=== PATIENT | male | born 1955 | race Two or more races ===

== ENCOUNTER → 2024-05-24 | Outpatient (CLI) | payer MEDICARE, MEDICAID, SELFPAY ==
--- NOTE | 2024-05-24 16:18 | XR_ITS ---
Examination: Venous duplex lower extremity sonogram, bilateral. Date and time of exam: May 24, 2024 1643 hrs. Indications: Bilateral leg swelling and pain 18 months, (nonhealing wound right lower leg noticed beginning one year ago Technique: Multiple sonographic images of the deep venous system have been obtained. B-mode/2-D grayscale imaging of vascular structures and Doppler spectral analysis (waveforms) and color performed Both legs are examined. Findings: Deep venous systems do not demonstrate abnormal echogenicity. No diagnostic visualization secondary to bandaging right peroneal and posterior tibial veins, left peroneal left posterior tibial veins Impression: Limited study No DVT demonstrated
== END | disposition home or self-care (01) ==
PROVIDERS: PCP Hospitalist; Referring Provider Hospitalist; Visit Provider Hospitalist
DX: I70.232 Atherosclerosis of native arteries of right leg with ulceration of calf (principal); I87.323 Chronic venous hypertension (idiopathic) with inflammation of bilateral lower extremity; I87.331 Chronic venous hypertension (idiopathic) with ulcer and inflammation of right lower extremity
CPT/HCPCS: 93970

== ENCOUNTER → 2024-05-24 | Outpatient (CLI) | payer MEDICARE, MEDICAID, SELFPAY | END | disposition home or self-care (01) | PROVIDERS: Visit Provider Student in an Organized Health Care Education/Training Program | DX: L97.812 Non-pressure chronic ulcer of other part of right lower leg with fat layer exposed (principal); M19.91 Primary osteoarthritis, unspecified site; B19.20 Unspecified viral hepatitis C without hepatic coma; I10 Essential (primary) hypertension; K74.60 Unspecified cirrhosis of liver; K21.9 Gastro-esophageal reflux disease without esophagitis; F15.90 Other stimulant use, unspecified, uncomplicated | CPT/HCPCS: 11042; 11045 ×4; 99213; A9270; G0463 ==

== ENCOUNTER → 2024-05-31 | Outpatient (CLI) | payer MEDICARE, MEDICAID, SELFPAY | END | disposition home or self-care (01) | LOC: SWHD 08:48 | PROVIDERS: PCP Family Medicine; Referring Provider Family Medicine; Visit Provider Student in an Organized Health Care Education/Training Program | DX: L97.812 Non-pressure chronic ulcer of other part of right lower leg with fat layer exposed (principal); F17.200 Nicotine dependence, unspecified, uncomplicated; M19.91 Primary osteoarthritis, unspecified site; B19.20 Unspecified viral hepatitis C without hepatic coma; I10 Essential (primary) hypertension; K74.60 Unspecified cirrhosis of liver; K21.9 Gastro-esophageal reflux disease without esophagitis; E66.9 Obesity, unspecified; F15.90 Other stimulant use, unspecified, uncomplicated | CPT/HCPCS: 97597; 97598 ×5; A9270 ==

== ENCOUNTER → 2024-06-02 | Outpatient (CLI) | payer MEDICARE, MEDICAID, SELFPAY ==
--- NOTE | 2024-06-02 15:00 | XR_ITS ---
Examination: Arterial duplex lower extremity study. Date and time of exam: June 02, 2024 1529 hours INDICATIONS: Bilateral leg swelling and pain nonhealing open wounds in the lower legs beginning one year ago Findings: Duplex sonographic imaging of the lower extremity arteries using B-mode/Suarez scale imaging and Doppler spectral analysis and color flow. Ankle brachial indices have been recorded. Right common femoral artery demonstrates triphasic flow. Right superficial femoral artery demonstrates biphasic flow. Right popliteal artery demonstrates biphasic flow. Left common femoral artery demonstrates monophasic flow. Left superficial femoral artery demonstrates biphasic flow. Left popliteal artery demonstrates biphasic flow. Bandaging precludes assessment perineal posterior tibial and dorsalis pedis arteries Impression: Limited study Significant obstructive arterial disease Consider correlation with CTA abdominal aorta iliofemoral runoff post intravenous contrast
== END | disposition home or self-care (01) ==
PROVIDERS: Referring Provider Hospitalist; Visit Provider Hospitalist
DX: I77.89 Other specified disorders of arteries and arterioles (principal)
CPT/HCPCS: 93925

== ENCOUNTER → 2024-06-07 | Outpatient (CLI) | payer MEDICARE, MEDICAID, SELFPAY | END | disposition home or self-care (01) | LOC: SWHD 09:55 | PROVIDERS: PCP Family Medicine; Referring Provider Family Medicine; Visit Provider Surgery | DX: L97.812 Non-pressure chronic ulcer of other part of right lower leg with fat layer exposed (principal); F17.200 Nicotine dependence, unspecified, uncomplicated; M19.91 Primary osteoarthritis, unspecified site; B19.20 Unspecified viral hepatitis C without hepatic coma; I10 Essential (primary) hypertension; K74.60 Unspecified cirrhosis of liver; K21.9 Gastro-esophageal reflux disease without esophagitis; E66.9 Obesity, unspecified; F15.90 Other stimulant use, unspecified, uncomplicated | CPT/HCPCS: 29581; A9270 ==

== ENCOUNTER → 2024-06-14 | Outpatient (CLI) | payer MEDICARE, MEDICAID, SELFPAY | END | disposition home or self-care (01) | LOC: SWHD 09:54 | PROVIDERS: PCP Family Medicine; Referring Provider Family Medicine; Visit Provider Student in an Organized Health Care Education/Training Program | DX: L97.812 Non-pressure chronic ulcer of other part of right lower leg with fat layer exposed (principal); F17.200 Nicotine dependence, unspecified, uncomplicated; M19.91 Primary osteoarthritis, unspecified site; B19.20 Unspecified viral hepatitis C without hepatic coma; I10 Essential (primary) hypertension; K74.60 Unspecified cirrhosis of liver; K21.9 Gastro-esophageal reflux disease without esophagitis; E66.9 Obesity, unspecified; F15.90 Other stimulant use, unspecified, uncomplicated | CPT/HCPCS: 17250; A9270 ==

== ENCOUNTER → 2024-06-21 | Outpatient (CLI) | payer MEDICARE, MEDICAID, SELFPAY | END | disposition home or self-care (01) | LOC: SWHD 09:56 | PROVIDERS: PCP Family Medicine; Referring Provider Family Medicine; Visit Provider Surgery | DX: L97.812 Non-pressure chronic ulcer of other part of right lower leg with fat layer exposed (principal); S91.104A Unspecified open wound of right lesser toe(s) without damage to nail, initial encounter; X58.XXXA Exposure to other specified factors, initial encounter; F17.200 Nicotine dependence, unspecified, uncomplicated; M19.91 Primary osteoarthritis, unspecified site; K74.60 Unspecified cirrhosis of liver; K21.9 Gastro-esophageal reflux disease without esophagitis; E66.9 Obesity, unspecified; F15.90 Other stimulant use, unspecified, uncomplicated; B19.20 Unspecified viral hepatitis C without hepatic coma | CPT/HCPCS: 29581; A9270 ==

== ENCOUNTER 2024-06-27 13:27 | Inpatient (IN) | payer MEDICARE, MEDICAID, SELFPAY ==
[2024-06-27] VITALS (8 sets, daily range): BP systolic 67–120; BP diastolic 47–69; PULSE 81–100; RESP 17–89; TEMP 36.5–37; O2SAT 84–98; BMI 43.5
--- NOTE | 2024-06-27 13:49 | EKG_ITS ---
[facility] Test Date: 2024-06-27 Pat Name: AYSHA GROVE Department: Room: - Gender: Male Clerical Transcriber: : [id number] Requested By: Cynthia Griffith Order Number: [id number] Reading MD: Cynthia Griffith Measurements Intervals [place] Rate: 82 P: 23 PA: 165 QRS: 16 QRSD: 85 T: 47 QT: 354 QTc: 414 Interpretive Statements SINUS RHYTHM LOW QRS VOLTAGE IN PRECORDIAL LEADS [QRS DEFLECTION < 1.0 mV IN CHEST LEADS] Compared to ECG 02/10/2023 20:30:43 Low QRS voltage now present /store/S0/[id number]/ecg/[id number].pdf
--- NOTE | 2024-06-27 14:05 | PC.NURSE ---
PT BROUGHT IN FROM [facility] WITH INITIAL C/O BILATERAL LEG PAIN, BUT UPON ARRIVAL OF EMS - EMS FOUND PT SHORT OF BREATH AND WITH RALES IN ALL LUNG [place] AND TREATED PT UNDER PULMONARY EDEMA EMS PROTOCOL WITH NITRO SUBLINGUAL AND NITROPASTE. UPON ARRIVAL AT THE HOSPITAL, B/P LOW AND NITROPASTE REMOVED FROM PT'S CHEST
[2024-06-27 14:30] LABS: Basophils # (Auto) 0.1 Thou/mm3 (0.0-0.2); Basophils % (Auto) 0 % (0-2.5); Eosinophils % (Auto) 0 % (0-10); Hematocrit 37.3 % (41.0-53.0); Hemoglobin 12.4 g/dL (13.5-16.0); Immature Granulocytes % (Auto) 1 % (0-0); Lymphocytes # (Auto) 1.3 Thou/mm3 (1.0-4.8); Lymphocytes % (Auto) 5 % (10-50); Mean Corpuscular HGB Conc 33.2 g/dl (31.0-37.0); Mean Corpuscular Hemoglobin 28.2 pg (25.0-35.0); Mean Corpuscular Volume 85 fL (80-100); Monocytes # (Auto) 0.6 Thou/mm3 (0.0-0.8); Monocytes % (Auto) 3 % (0-12); Neutrophils # (Auto) 21.2 Thou/mm3 (1.8-7.7); Neutrophils % (Auto) 91 % (37-80); Nucleated Red Blood Cell % 0 /100 WBC (0); Platelet Count 158 Thou/mm3 (140-440); RDW Standard Deviation 41.2 fL (35.1-43.9); Red Blood Count 4.39 Miln/mm3 (4.50-5.90); White Blood Count 23.4 Thou/mm3 (3.8-10.6)
[2024-06-27 14:47] LABS: Alanine Aminotransferase 36 U/L (10-49); Albumin, Serum 3.3 gm/dL (3.4-4.8); Albumin/Globulin Ratio 0.9 (1.2-2.2); Alkaline Phosphatase 95 U/L (46-116); Anion Gap 10 (7-16); Aspartate Amino Transferase 30 U/L (0-34); BUN/Creatinine Ratio 17 Ratio (12-20); Bilirubin,Total 0.6 mg/dL (0.3-1.2); Blood Urea Nitrogen 42 mg/dL (9-23); Calcium (Corrected) 9.6 mg/dL (8.5-10.1); Carbon Dioxide 22.4 mMol/L (20.0-31.0); Chloride 103 mMol/L (98-107); Creatinine (Component) 2.5 mg/dL (0.6-1.3); Estimated Creatinine Clearance 34.4 mL/min (>60); Globulin 3.7 gm/dL (2.3-3.5); Glucose 119 mg/dL (74-106); Osmolality,Calculated 281 (275-295); Potassium 3.7 mMol/L (3.4-5.1); Sodium 135 mMol/L (136-145); Troponin I < 0.020 ng/mL (0.0-0.045); eGFR 27 See Note
[2024-06-27 14:48] LABS: B-Type Natriuretic Peptide < 20 pg/mL (0-100)
--- NOTE | 2024-06-27 14:50 | XR_ITS ---
Examination: AP chest single view Technique one AP portable semiupright chest single view Exam date 9: June 27, 2024 1357 hours Comparison February 10, 2023 INDICATIONS: Sepsis today FINDINGS: Opacity in the left lung obscuring detail left cardiac contour Subsegmental atelectasis in the right lower lung zone Normal heart size IMPRESSION: Recommend lateral chest film follow-up to exclude pneumonia in the lingular segment left upper lobe
[2024-06-27] MEDS: SODIUM CHLORIDE 0.9% 500 ML 500 ML 999 ML IV (14:57)
[2024-06-27] MEDS: PIPER/TAZO 3.375 GM PREMIX 3.375 GM/50 ML BAG IV (15:03)
--- NOTE | 2024-06-27 15:04 | PD.EDSOB ---
ED SOB =RME/HPI General Chief Complaint: Shortness of Breath/Dyspnea Stated Complaint: SOB, AND LEG INFECTION Time Seen by Provider: 06/27/24 14:54 Arrival date/time: 06/27/24 13:27 RME / HPI RME / HPI Narrative: 68 year old male with history of chronic septic arthritis with I&D and placement of antibiotic cement 02/13/2023 at [facility], hypertension, cirrhosis, peripheral vascular disease, BPH, GERD presents to the ED, [facility] from [facility] with complaints of shortness of breath and right lower extremity redness, swelling, and pain. The patient states that while sitting on the toilet, he suddenly began to feel short of breath, accompanied by chills and a cough. According to medics, he was given two 0.4 mg sublingual nitroglycerin and a 1 nitroglycerin paste. Regarding his right leg, the patient reports having a small ulcer and fluid retention for the past 1.5 years, but about one week ago, he scraped his knee in the bathroom. Since then, he has noticed worsening redness, swelling, pain, and weeping from the wound. He denies fevers, chest pain, abdominal pain, nausea, vomiting, or urinary symptoms. Related Data Home Medications ?Medication ?Instructions ?Recorded ?Confirmed albuterol sulfate 90 mcg/actuation 1 puff inhalation QDAY PRN 09/30/21 10/20/23 aerosol inhaler Shortness Of Breath Or Wheezing celecoxib 200 mg capsule 1 cap PO BID 09/30/21 10/20/23 tamsulosin 0.4 mg capsule 1 cap PO QDAY 09/30/21 10/20/23 gabapentin 300 mg capsule 300 mg PO BID 11/13/21 10/20/23 Previous Rx's ?Medication ?Instructions ?Recorded losartan 50 mg tablet 50 mg PO QDAY Hypertension #30 tabs 11/13/21 omeprazole 20 mg capsule,delayed 20 mg PO QDAY #30 caps 11/13/21 release furosemide 40 mg tablet 40 mg PO QAM #30 tabs 12/11/21 Allergies Allergy/AdvReac Type Severity Reaction Status Date / Time No Known Allergies Allergy Verified 06/27/24 18:24 Review of Systems Review of Systems Narrative Review of Systems: Gen: No fever, no chills, no weight loss EYES: No discharge, no visual changes, no pain HEENT: No ear pain, no congestion, no sore throat PULM:+ shortness of breath, +cough, no congestion CV: No chest pain, no dyspnea on exertion, no palpitations GI: No nausea, no vomiting, no diarrhea, no pain, no constipation : No frequency, no urgency,? no dysuria Musc/skel: As noted in the HPI. No joint pain, no back pain Skin: No rash. Neuro: No weakness, no headache Past Medical History Past Medical History CARDIAC: Positive Cardiac Disorders, Congestive Heart Failure and Hypertension RESPIRATORY: Positive Smoking GASTROINTESTINAL: Positive Gastrointestinal Disorders, Hepatitis, Cirrhosis and Gastroesophageal Reflux Disease GENITOURINARY: Positive Benign Prostatic Hyperplasia MUSCULOSKELETAL: Positive Arthritis PSYCHO/SOCIAL: Positive Recreational Drug Use OTHER HISTORY: Positive MRSA Family History FAMILY HISTORY: Positive Family Cardiac Disorders Surgical History SURGICAL: Negative Cardiac Surgery, Open Heart Surgery, Coronary Artery Bypass Graft, Pacemaker or Vasectomy Social History SMOKING STATUS: Current some day smoker SECOND HAND EXPOSURE: Yes SUBSTANCE USE: former substance user and other ED Exam Narrative Physical exam: GENERAL: In general the patient is awake, interactive, in an emergency department gurney.? HEAD/EYES/EARS/NOSE/THROAT: normo-cephalic, atraumatic, mucus membranes are moist.? No cervical tenderness palpation midline.? Supple neck. CARDIOVASCULAR: regular rate and regular rhythm, no murmurs, heart sounds are not distant, strong pulses in all four extremities that are equal and symmetric bilateral upper and lower extremities, normal capillary refill. CHEST/PULMONARY: normal chest rise and fall, good air movement, clear to auscultation bilaterally, normal inspiratory to expiratory ratios without evidence of respiratory distress. ABDOMEN: soft, not tender, no masses appreciated BACK: normal range of motion without pain. NEUROLOGICAL: cranio-facial features are symmetric, moves all four extremities equally without obvious limitations or weakness. EXTREMITY: Bilateral lower extremity vascular changes, swelling to bilateral lower extremities (R>L), diabetic foot ulcer noted on the bottom of the right foot, cellulitis between first and second toes. Two wounds measuring 1cm x 8cm and 8cm x 3 cm with puss, tenderness to palpation, and weeping drainage on the posterior calf. Erythema that extends up ti thigh from the medial thigh to lateral thigh, not circumferential, there are 3 blisters to inner posterior thigh, no scrotal/ inguinal area/perineal involvement. Patient able to flex right knee without pain, nontender, there is a 2cm x 1cm open lesion on lateral aspect of patella. SKIN: warm, no jaundice, no petechia. PSYCH: calm, cooperative, no evidence of psychosis or agitation. Course Quality Measures Current suspected stage: sepsis Possible source: skin/soft tissue and wound Blood cultures ordered: completed in ED Antibiotic ordered: Yes Pertinent labs: 06/27/24 14:14 Lactic Acid 2.3 H mMol/L (0.4-2.0) Procalcitonin 2.47 H ng/ml (0.0-0.49) sepsis Orders Category Date Time Status Anodize Machine Operator STAT Care 06/27/24 14:49 Completed Continuous Pulse Oximetry STAT Care 06/27/24 14:49 Completed EKG (ED ONLY) *Do not use* NOW Care 06/27/24 13:50 Completed IV [Insert IV] STAT Care 06/27/24 13:49 Active In and Out Catheter X1PRN Care 06/27/24 14:49 Active Insert IV NOW Care 06/27/24 14:49 Completed Miscellaneous Nursing Order X1 Care 06/27/24 13:49 Active NPO STAT Care 06/27/24 14:49 Active Strict Intake and Output Routine Care 06/27/24 14:49 Ordered EKG (ED Only) Stat Exams 06/27/24 13:49 Draft US venous doppler LE BI Stat Exams 06/27/24 16:18 Completed XR chest 1V SEPSIS PROTOCOL Stat Exams 06/27/24 14:50 Completed BNP [B-Type Natriuretic Peptide] Stat Lab 06/27/24 14:14 Completed Blood Culture (Lab) Stat Lab 06/27/24 14:20 Received CBC Stat Lab 06/27/24 14:14 Completed CMP [Comprehensive Metabolic Panel] Stat Lab 06/27/24 14:14 Completed LDH (Lactate Dehydrogenase) Stat Lab 06/27/24 14:14 Completed Lactate (Lactic Acid) Stat Lab 06/27/24 14:14 Completed Lactic Acid, 3 HR Stat Lab 06/27/24 18:05 Ordered Lipase Stat Lab 06/27/24 14:14 Completed Magnesium Stat Lab 06/27/24 14:14 Completed Partial Thromboplastin Time Stat Lab 06/27/24 14:14 Completed Phosphorous Stat Lab 06/27/24 14:14 Completed Procalcitonin Stat Lab 06/27/24 14:14 Completed Prothrombin Time with INR Stat Lab 06/27/24 14:14 Completed Troponin I Stat Lab 06/27/24 14:14 Completed Urinalysis Stat Lab 06/27/24 14:49 Ordered Urine Culture Stat Lab 06/27/24 14:49 Ordered Wound Cult and GS, Anaer Stat Lab 06/27/24 15:25 Received Wound Cult and GS, Anaer Stat Lab 06/27/24 15:25 Received Cefepime Inj [Maxipime Inj] 1 gm Med 06/27/24 16:17 Discontinued SODIUM CHLORIDE 0.9% (Popper) [Ns 0.9% (P)] 50 ml IV X1 Piper/Tazo 3.375 gm Premix [Zosyn] Med 06/27/24 14:53 Discontinued 3.375 gm in 50 ml IV X1 Sodium Chloride 0.9% 1000 ml [Ns] 1,914 ml Med 06/27/24 16:15 Discontinued IV 1,914 mls/hr Sodium Chloride 0.9% 500 ml [Ns] 500 ml Med 06/27/24 14:51 Discontinued IV 999 mls/hr Vancomycin Inj 1,000 mg Med 06/27/24 14:52 Discontinued Sodium Chloride 0.9% 250 ml [Ns] 250 ml IV X1 Vancomycin/Ns 1 gm Ivpb 200 ml Med 06/27/24 15:00 Discontinued IV X1 Oxygen Delivery NOW RT 06/27/24 14:49 Active Vital Signs Vital signs: Vital Signs Temperature 97.9 F 06/27/24 13:48 Pulse Rate 90 06/27/24 13:48 Respiratory Rate 28 H 06/27/24 13:48 Pulse Oximetry (%) 89 L 06/27/24 13:48 Oxygen Delivery Method Nasal Cannula 06/27/24 13:48 Oxygen Flow Rate 6 06/27/24 13:48 Shortness of Breath / Dyspnea MDM Narrative MDM Narrative:: 68-year-old male with history of hypertension, osteoarthritis, right knee replacement, 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 Patient reports that he scraped his right leg knee area 3 days ago and increased redness over the last 1 to 2 days. Prior to arrival EMS reports that they thought he was having chest pain and chest pain protocol was followed. He was given nitroglycerin 0.4 sublingual and Nitropaste. ED course -Presented with a blood pressure of 67/47 pulse of 90 and respirations of 28. 89% on 6 L. Call Patient was awake and talking on arrival to the emergency department. -Nitropaste was removed and the blood pressure went up to 98/56 with a pulse of 81. A sepsis alert was called and the patient was completely undressed. It is noted that he has worsening right lower extremity cellulitis that goes from the right lower extremity to the right medial and lateral thigh, patient has worsening discharge from the right calf ulcer wound that has pus and as well as open wound over right lateral patella with yellow discharge. Patient has no crepitus on exam and there is no erythema into the scrotum or perineal. The patient's leg is marked for the obvious cellulitis on the lower extremity. -White count is noted to be 23,000, hemoglobin is 12/37, INR is 1.1. This is abnormal elevated white count. -BUN/creatinine is 42/2.5. Glucose is 119 and lactic acid was 2.3. Abnormal creatinine. -LFTs are normal. Procalcitonin is 2.47. Patient is treated with 30 mL/kg normal saline and surgical consult was completed here in the emergency department. Patient treated with Zosyn, vancomycin, he is not diabetic and cefepime is added. -Dr. Baez request CT of lower extremity with contrast. Plan: Repeat creatinine and if greater than 2.[address] a CT scan with IV contrast of the lower extremity. Dr. Lubin request that you call her back with the CT results. Patient data External records reviewed:: [facility] previous records, EMS form and Care Home records (I reviewed pmhx and medication list from [facility] ) Clinical information provided by:: patient and EMS Social determinants that could affect healthcare access:: housing (SNF resident) Patient has the following chronic illnesses:: chronic septic arthritis with I&D and placement of antibiotic cement 02/13/2023 at [facility], hypertension, cirrhosis, peripheral vascular disease, BPH, GERD How is presenting disease/condition affected by chronic disease/condition?: exacerbated by Evaluation data The following diagnostics were reviewed and interpreted by me:: lab results, radiology exam(s) and EKG tracing(s) (sinus rhythm, rate 82, low voltage, no elevation, no depression, QTc 392, no STEMI) Lab and/or radiology exams considered but not ordered:: None Interpretation Summary: Ordering Physician: Cynthia Jenkins MD Date of Service: 06/27/24 Procedure(s): XR chest 1V SEPSIS PROTOCOL Accession Number(s): [id number] cc: Demetris Zepeda MD; Cynthia Jenkins MD~ Examination: AP chest single view Technique one AP portable semiupright chest single view Exam date 9: June 27, 2024 1357 hours Comparison February 10, 2023 INDICATIONS: Sepsis today FINDINGS: Opacity in the left lung obscuring detail left cardiac contour Subsegmental atelectasis in the right lower lung zone Normal heart size IMPRESSION: Recommend lateral chest film follow-up to exclude pneumonia in the lingular segment left upper lobe Dictated By: Demetris Zepeda MD Signed By: <Electronically signed by Demetris Zepeda MD in OV> 06/27/24 1525 Medications / Prescriptions Medications or Prescriptions considered but not ordered:: None Medication administrations:: Medication Administration History Discontinued Medications Sodium Chloride (Ns) 500 mls @ 999 mls/hr IV .Q31M ONE Stop: 06/27/24 15:21 Last Infusion: 06/27/24 15:06 Dose: Infused Documented By: Admin: 06/27/24 14:57 Dose: 999 mls/hr Documented By: BD Vancomycin HCl 1,000 mg/ (Sodium Chloride) 250 mls @ 150 mls/hr IV X1 ONE Stop: 06/27/24 16:31 Last Admin: 06/27/24 15:06 Dose: Not Given Documented By: BD Non-Admin Reason: Other, see note Piperacillin/Tazobactam/Dextrose (Zosyn) 3.375 gm in 50 mls @ 100 mls/hr IV X1 ONE Stop: 06/27/24 15:22 Last Infusion: 06/27/24 15:34 Dose: Infused Documented By: Admin: 06/27/24 15:03 Dose: 100 mls/hr Documented By: BD Vancomycin/Sodium Chloride (Vancomycin/Ns 1 Gm Ivpb) 200 mls @ 120 mls/hr IV X1 ONE Stop: 06/27/24 16:39 Last Infusion: 06/27/24 17:27 Dose: Infused Documented By: Admin: 06/27/24 15:40 Dose: 120 mls/hr Documented By: BD Sodium Chloride (Ns) 1,914 mls @ 1,914 mls/hr 30 ml/kg infuse over 60 min (1914 ml) IV .Q1H ONE Stop: 06/27/24 17:14 Last Admin: 06/27/24 16:23 Dose: 1,914 mls/hr Documented By: BD Cefepime HCl 1 gm/ Sodium (Chloride) 50 mls @ 100 mls/hr IV X1 ONE Stop: 06/27/24 16:46 Last Admin: 06/27/24 17:43 Dose: 100 mls/hr Documented By: BD See above Consultations Consultation(s) initiated? (list below): Yes Consultation #1 (Physician, Specialty, Details): I spoke with surgeon Dr. Baez. Discussed patients PMHx, HPI, ED course, exam findings, labs results. Will come evaluate the patient in the ED. Time: 15:50 Consultation #2 (Physician, Specialty, Details): Patient has been evaluated by surgeon Dr. Baez. At this time does not think the patient has necrotizing fasciitis, requesting CT. Plan to repeat creatinine. Time: 17:18 Diagnosis Shortness of Breath Differential Diagnosis: acute exacerbation of chronic obstructive airways disease, congestive heart failure, community acquired pneumonia, asthma with exacerbation, pulmonary embolism and other (Sepsis, MRSA, Staph infection, necrotizing fasciitis) Most likely diagnosis given after review of the tests above:: To be determined Admission Indicated Admission indicated?: not indicated Admission Request Was there a request for admission?: Yes Admission Attestation Admission request attestation: Discussed case with [] from Hospitalist service regarding admission. Discussed patients ED course, exam findings, labs, and radiology results. The Hospitalist [agrees,declines] to accept the patient for admission. Disposition Plan Disposition Plan: other (specify) (Patient signed out to Dr. Estrella pending repeat creatinine and CT. ) Discharge Plan Prescriptions/Referrals Prescriptions/Med Rec: No Action furosemide 40 mg tablet 40 mg PO QAM Qty: 30 2RF Rx Instructions: Take one tab by mouth daily losartan 50 mg tablet 50 mg PO QDAY Qty: 30 2RF gabapentin 300 mg capsule 300 mg PO BID omeprazole 20 mg capsule,delayed release(DR/EC) 20 mg PO QDAY Qty: 30 2RF celecoxib 200 mg capsule 1 cap PO BID Patient Comments: TAKE ONE CAPSULE BY MOUTH TWICE DAILY FOR ARTHRITIS tamsulosin 0.4 mg capsule 1 cap PO QDAY albuterol sulfate 90 mcg/actuation HFA aerosol inhaler 1 puff INHALATION QDAY PRN (Reason: Shortness Of Breath Or Wheezing) Referrals: Michael Hayes MD [Primary Care Provider] - In 1 week Problem List Clinical Impression: Cellulitis of leg, right, Sepsis Patient/Caregiver Discharge Instructions Print Language: Greenlandic
[2024-06-27 15:19] LABS: Lactate (Lactic Acid) 2.3 mMol/L (0.4-2.0)
[2024-06-27 15:20] LABS: INR 1.1 (0.9-1.3); Partial Thromboplastin Time 33.4 Seconds (22.0-36.0); Prothrombin Time 12.2 Seconds (9.0-12.2)
--- NOTE | 2024-06-27 15:20 | PC.NURSE ---
pt does not want in and out cath will use urinal
[2024-06-27 15:31] LABS: LDH (Lactate Dehydrogenase) 162 U/L (120-246); Lipase 22 U/L (12-53); Magnesium 1.7 mg/dL (1.6-2.6); Phosphorous 4.2 mg/dL (2.4-5.1); Procalcitonin 2.47 ng/ml (0.0-0.49)
[2024-06-27] MEDS: VANCOMYCIN/NS 1 GM IVPB 200 ML IV (15:40)
--- NOTE | 2024-06-27 16:18 | XR_ITS ---
Examination: Venous duplex lower extremity sonogram, bilateral. Date and time of exam: June 27, 2024 1658 hrs. Indications: Leg swelling and redness beginning 3 days ago Technique: Multiple sonographic images of the deep venous system have been obtained. B-mode/2-D grayscale imaging of vascular structures and Doppler spectral analysis (waveforms) and color performed Both legs are examined. Findings: Deep venous systems do not demonstrate abnormal echogenicity. All visualized deep veins exhibit compressibility. All visualized deep veins exhibit augmentation. Impression: Negative for deep vein thrombosis
[2024-06-27] MEDS: SODIUM CHLORIDE 0.9% 1000 ML 1,914 ML 1914 ML IV (16:23)
--- NOTE | 2024-06-27 17:21 | PC.NURSE ---
pt very anxious has hx of anxiety. will call provider see if we can get something for anxiety
[2024-06-27] MEDS: CEFEPIME INJ 1 GM in SODIUM CHLORIDE 0.9% (Popper) 50 ML IV (17:43)
[2024-06-27 18:05] LABS: Reflex Lactate? Y
--- NOTE | 2024-06-27 18:17 | PC.NURSE ---
brother ellie called to talk to ask for update on pt advised pt was waiting to see if he is to be admitted. i informed pt that brother is on phone and pt stated that he wanted to talk provided phone to pt
--- NOTE | 2024-06-27 18:26 | PD.EDADDENDU ---
Emergency Room Addendum Addendum Narrative: [address] Jenkins. Past medical, surgical, social and family history reviewed. Vitals and home medications reviewed. Results and treatment plan discussed. I will assume the care of the patient at this time and will follow the patient, pending work-up results and final disposition. Please refer to the emergency department record for history and examination from initial visit. The following addendum documentation note is intended to reflect any pending information, findings, or radiology results not included in the patient?s initial chart. 2016 Morphine 4 mg IV every 30 minutes, up to a maximum of three doses, was ordered for pain management. Zofran was also prescribed. No prolonged QT interval was noted on his EKG. 2207 Case d/w hospitalist team who accepts patient for admission. RADIOLOGY DATA: Examination: Venous duplex lower extremity sonogram, bilateral. Date and time of exam: June 27, 2024 1658 hrs. Indications: Leg swelling and redness beginning 3 days ago Findings: Deep venous systems do not demonstrate abnormal echogenicity. All visualized deep veins exhibit compressibility. All visualized deep veins exhibit augmentation. Impression: Negative for deep vein thrombosis Dictated By: Demetris Zepeda MD, MD Attestation Attestation Scribe Attestation: I, Kerri Nieves, am scribing for and in the presence of Dr. Estrella. Provider Notation: Although this document has been carefully reviewed, there may still be some phonetic and other typographical errors. These errors are purely grammatical due to imperfections in the software program and should not be construed in any way to compromise the substance of the patient's medical care during this visit.
[2024-06-27 18:54] LABS: Lactic Acid, 3 HR 1.6 mMol/L (0.4-2.0)
[2024-06-27 19:21] LABS: Collection Type, Urine Clean Catch
[2024-06-27 19:24] LABS: Bacteria,Urine Rare; Bilirubin,Urine Negative (Negative); Blood,Urine Negative (Negative); Clarity,Urine Turbid (Clear/Hazy); Color,Urine Yellow (Lt Yel-Yel); Glucose, Urine Negative (Negative); Ketones,Urine Negative (Negative); Leukocyte Esterase,Urine Negative (Negative); Nitrite,Urine Negative (Negative); Protein,Urine 1+ (Neg - Trace); RBC,Urine 3 /hpf (0-3); Specific Gravity,Urine 1.024 (1.001-1.035); Squamous Epithelial Cell,Urine 1 /hpf (0-5); WBC,Urine 5 /hpf (0-5)
[2024-06-27] MEDS: ONDANSETRON INJ 2 MG/ML INJ 2 ML 4 MG IV (20:28)
[2024-06-27] MEDS: MORPHINE SULF INJ 10 MG/ML VIAL 4 MG IVP ×2 (20:28→22:34)
[2024-06-27 21:06] LABS: Lactate (Lactic Acid) 1.3 mMol/L (0.4-2.0)
[2024-06-27 21:29] LABS: Anion Gap 9 (7-16); BUN/Creatinine Ratio 19 Ratio (12-20); Blood Urea Nitrogen 42 mg/dL (9-23); Calcium 8.4 mg/dL (8.3-10.6); Carbon Dioxide 19.4 mMol/L (20.0-31.0); Chloride 108 mMol/L (98-107); Creatinine (Component) 2.2 mg/dL (0.6-1.3); Estimated Creatinine Clearance 39.1 mL/min (>60); Glucose 92 mg/dL (74-106); Osmolality,Calculated 282 (275-295); Potassium 3.9 mMol/L (3.4-5.1); Sodium 136 mMol/L (136-145); eGFR 32 See Note
--- NOTE | 2024-06-27 22:11 | XR_ITS ---
Examination: Tibia-Fibula, right , 2 views Technique: Tibia-fibula AP lateral 2 views Date and time of exam: June 27, 2024 2119 hrs. Indications: Lower leg redness swelling and pain this week Findings: Old deformities of the patella, ununited patellar fracture Prominent osteopenia Marked thickening of the anterior cortex of the tibia consistent with chronic osteomyelitis Impression: Chronic osteomyelitis appearance tibial shaft, recommend MRI lower leg without contrast follow-up
--- NOTE | 2024-06-27 23:26 | ESHP_ITS ---
<Statement entered by Mihir Avalos MD - 06/30/24 06:19> I reviewed above note and agree with findings and plans. I have also personally examined the patient with medicine team and went over assessment and plan with medical team including bakery pastry internship and resident physician. Documentation for date of: 06/27/24 HPI History of Present Illness History of present illness: Juwan is a 68 y/o male with PMHx severe peripheral vascular disease with chronic venous insufficiency, essential hypertension, hepatitis C, BPH, GERD, previous knee effusions requiring aspirations, HFpEF (with grade 1 diastolic dysfunction) who is brought in by ambulance from [facility] who comes in for an evaluation of right lower extremity pain and redness extending up to the mid thigh with associated fever and chills. Patient reports this is all developed over the past 3 days and that he has never had the symptoms before. He says that he has dealt with chronic issues in his right leg requiring numerous procedures, however has never had redness that has extended to his mid groin area. He notes that his groin and distal femur look different. Denies any recent travel, denies being a diabetic. He says that he felt weak in the bathroom today and could not get up and felt dizzy and felt as if he was going to pass out but did not. He says that the pain initially was a 10 out of 10 but it is manageable at this point. He says that he has seen vascular and orthopedic doctors in the past for managing his right leg. He has not had any symptoms on his left leg. He is wheelchair-bound. He sees wound care once a week. No other complaints at this time ED course: Patient arrived to the ED with a temperature of 98, heart rate of 90, tachypneic at 28, saturating 89% on 6 L room air. He was worked up and was found to have sodium of 135, potassium 3.7, BUN/creatinine of 42 and 2.5 respectively, white count 23, hemoglobin 12.4, lactate 2.3, troponin negative x 1, Pro-Yoel 2.47, urinalysis showed rare bacteria. Venous Doppler bilateral was done which showed no DVT and any other issues at the time. General surgery was spoken with who had recommended to image patient with CT lower extremities with contrast and give fluids prior to doing so, however patient's kidney function only slightly improved and CT of lower extremities was not done at the time. Patient was given approximately 3 L of normal saline, Zosyn x 1, cefepime x 1, Vanco x 1, 8 mg of morphine, Zofran x 1. Medicine was consulted and patient admitted to the floors. Past medical history: As above Surgical history: Knee aspiration, right, patellar repair in 1983 Allergies: No known allergies Meds: Tylenol, vitamin C, lactulose, cilostazol, Lasix, methadone, melatonin, losartan, Celebrex, Flomax, gabapentin, omeprazole, Dulcolax, milk of mag, Family history:Denies CVA, CAD and DM for family hx Social Hx: Born in [place] Lives/custodial in which she started living in 2 years ago. He has history of substance abuse including heroin, used to be a heavy drinker when he was younger. Has smoked for about 30 years but he was unsure if was a pack a day. Denies meth use. Review of Systems Review of Systems Narrative Review of Systems: Constitutional: positive fever, positive chills, no fatigue, weakness, weight loss HEENT: No eye pain, vision loss, ear pain, hearing loss, dysphagia, Cardiovascular: No chest pain, palpitations, edema, pain with walking Respiratory: No cough, shortness of breath, wheezing GI: No NVD, abdominal pain, constipation, blood in stool, loss of appetite, heartburn Extremities: No presence of pitting edema MSK: No back pain, joint pain, joint swelling, +R leg pain Neuro: No dizziness, numbness, weakness, headaches, seizures, tremors Psych: No anxiety, depression Exam Vital Signs Temp Pulse Resp BP Pulse Ox O2 Del Method O2 Flow Rate 98.2 F 100 20 117/69 97 Nasal Cannula 4 06/27/24 22:03 06/27/24 22:03 06/27/24 22:03 06/27/24 22:03 06/27/24 22:03 06/27/24 22:03 06/27/24 22:03 Narrative Exam General: AAOx3, NAD, morbidly obese, comfortable, pleasant male HEENT: Moist mucous membranes, conjunctiva clear, EOMI, pupils appear to be constricted, PERRLA, appears to have poor dentition Cardiovascular: Pansystolic murmur heard, radial pulses +2 bilat, RRR Pulmonary: Difficulty appreciating breath sounds with body habitus, no cough or wheezing GI: No tenderness to light or deep palpitation, no guarding, rigidity, rebound tenderness or distension Extremities: Chronic venous stasis on left leg, right lower extremity erythematous extending up to mid groin, presence of a couple of bullae near distal rectus femoris, warm to touch, chronic venous stasis seen in right lower extremity, multiple ulcers seen near Achilles region, and throughout foot Neuro: AAOx3, no focal motor or sensory deficits in the UE or LE bilat Psych: Good judgement, thought and behavior Results: Labs 06/27/24 14:14 06/27/24 20:50 Labs: Short CBC 06/27/24 Range/Units 14:14 WBC 23.4 H (3.8-10.6) Thou/mm3 Hgb 12.4 L (13.5-16.0) g/dL Hct 37.3 L (41.0-53.0) % Plt Count 158 (140-440) Thou/mm3 BMP 06/27/24 06/27/24 14:14 20:50 Sodium 135 L 136 Potassium 3.7 3.9 Chloride 103 108 H Carbon Dioxide 22.4 19.4 L BUN 42 H 42 H Creatinine 2.5 H 2.2 H Glucose 119 H 92 Calcium 9.0 8.4 Cardiac Enzymes 06/27/24 Range/Units 14:14 Troponin I < 0.020 (0.0-0.045) ng/mL Liver Function 06/27/24 Range/Units 14:14 Total Bilirubin 0.6 (0.3-1.2) mg/dL AST 30 (0-34) U/L ALT 36 (10-49) U/L Alkaline Phosphatase 95 (46-116) U/L Albumin 3.3 L (3.4-4.8) gm/dL Urine 06/27/24 Range/Units 19:14 Urine Color Yellow (Lt Yel-Yel) Urine Clarity Turbid A (Clear/Hazy) Urine pH 5.0 (5.0-7.0) Ur Specific [place] 1.024 (1.001-1.035) Urine Protein 1+ A (Neg - Trace) Urine Glucose (UA) Negative (Negative) Quality Measures Quality Measures sepsis Current suspected stage: sepsis Possible source: skin/soft tissue and wound Blood cultures ordered: completed in ED Antibiotic ordered: Yes Advance care planning discussed with:: patient Medications Home Medications and Allergies Home Medications ?Medication ?Instructions ?Recorded ?Confirmed ?Type albuterol sulfate 90 mcg/actuation 1 puff inhalation Q DAY PRN 09/30/21 10/20/23 History aerosol inhaler Shortness Of Breath Or Wheez ing celecoxib 200 mg capsule 1 cap PO BID 09/30/21 History tamsulosin 0.4 mg capsule 1 cap PO QDAY 09/30/2110/19 History gabapentin 300 mg capsule 300 mg PO BID 11/13/2110/19 History Allergies Allergy/AdvReac Type Severity Reaction Status Date / Time No Known Allergies Allergy Verified 06/27/24 18:24 Visit Medications Acetaminophen (Acetaminophen 325 Mg Tablet) 650 mg PO Q6H PRN PRN Reason: Fever >100 or fever 1-3 Stop: 07/27/24 23:09 Albuterol/Ipratropium (Albuterol/Ipratropium (Duoneb) Rt Alexus 3 Ml Nebu) 3 ml INH BID SILVIA Stop: 07/28/24 08:59 Gabapentin (Gabapentin 300 Mg Capsule) 300 mg PO BID SILVIA Stop: 07/28/24 08:59 Heparin Sodium (Porcine) (Heparin Sod Inj 5000 Unit/Ml Vial) 5,000 unit SC Q12H SILVIA Stop: 07/12/24 08:59 Sodium Chloride (Ns) 1,000 mls @ 150 mls/hr IV .Q6H40M SILVIA Stop: 07/27/24 23:14 Doxycycline Hyclate 100 mg/ (Sodium Chloride) 100 mls @ 100 mls/hr IV BID SILVIA Stop: 07/05/24 08:59 Piperacillin/Tazobactam/Dextrose (Zosyn) 2.25 gm in 50 mls @ 100 mls/hr IV Q6H SILVIA Stop: 07/05/24 05:59 Melatonin (Melatonin 3 Mg Tablet) 3 mg PO HS SILVIA Stop: 07/27/24 23:19 Morphine Sulfate (Morphine Sulf Inj 10 Mg/Ml Vial) 4 mg IVP Q30M PRN PRN Reason: PAIN Last Admin: 06/27/24 22:34 Dose: 4 mg Oxycodone/Acetaminophen (Oxycodone/Apap 5/325 Tablet) 1 tab PO Q6H PRN PRN Reason: PAIN SCALE 4-6 (Moderate Stop: 07/02/24 23:09 Pantoprazole Sodium (Pantoprazole Inj 40 Mg Vial) 40 mg IVP QDAY SILVIA Stop: 07/28/24 08:59 Discontinued Medications Sodium Chloride (Ns) 500 mls @ 999 mls/hr IV .Q31M ONE Stop: 06/27/24 15:21 Last Infusion: 06/27/24 15:06 Dose: Infused Vancomycin HCl 1,000 mg/ (Sodium Chloride) 250 mls @ 150 mls/hr IV X1 ONE Stop: 06/27/24 16:31 Last Admin: 06/27/24 15:06 Dose: Not Given Piperacillin/Tazobactam/Dextrose (Zosyn) 3.375 gm in 50 mls @ 100 mls/hr IV X1 ONE Stop: 06/27/24 15:22 Last Infusion: 06/27/24 15:34 Dose: Infused Vancomycin/Sodium Chloride (Vancomycin/Ns 1 Gm Ivpb) 200 mls @ 120 mls/hr IV X1 ONE Stop: 06/27/24 16:39 Last Infusion: 06/27/24 17:27 Dose: Infused Sodium Chloride (Ns) 1,914 mls @ 1,914 mls/hr 30 ml/kg infuse over 60 min (1914 ml) IV .Q1H ONE Stop: 06/27/24 17:14 Last Infusion: 06/27/24 20:43 Dose: Infused Cefepime HCl 1 gm/ Sodium (Chloride) 50 mls @ 100 mls/hr IV X1 ONE Stop: 06/27/24 16:46 Last Infusion: 06/27/24 19:26 Dose: Infused Piperacillin/Tazobactam/Dextrose (Zosyn) 2.25 gm in 50 mls @ 100 mls/hr IV Q6H [facility] Stop: 07/04/24 23:29 Ondansetron HCl (Ondansetron Inj 2 Mg/Ml Inj 2 Ml) 4 mg IV X1 ONE; Protocol Stop: 06/27/24 20:19 Last Admin: 06/27/24 20:28 Dose: 4 mg Assessment & Plan Plan Assessment Juwan is a 68 y/o male with PMHx severe peripheral vascular disease with chronic venous insufficiency, essential hypertension, hepatitis C, BPH, GERD, previous knee effusions requiring aspirations, HFpEF (with grade 1 diastolic dysfunction) who is for acute hypoxic respiratory failure and sepsis. #Acute hypoxic respiratory failure #Sepsis #RLE erythema DDx: Cellulitis, Jim's gangrene, acute limb ischemia, osteomyelitis Tachycardic, white count 23 Lactate 2.3 -> 1.6 -> 1.3 Patient was given nitro paste in ambulance, likely culprit of why patient was hypotensive qSOFA: 1 points 2 out of 4 SIRS criteria (tachypnea and WBC) Sepsis due to 2/4 SIRS criteria with acute sepsis-related organ dysfunction as evidence by DEV Given Sepsis Bolus: 2.9 L Spoke with general surgery, Dr. Baez, low suspicion for Jim's, will evaluate patient tomorrow Will start abx coverage with Zoysn and Doxycycline as there is low suspicion for Jim's and if it was a case of this, pt would need immediate surgical intervention Plan: ? Zosyn 2.5 mg Q6H IV renally dosed ? Doxycycline 100 mg twice daily IV ? Follow-up MRSA screen ? Follow-up urine cultures ? Follow-up blood cultures ? General Surgery consulted, appreciate recs ? Continue with oxygen, wean down as tolerated ? Tylenol for antipyretics ? Resumed home Percocet 5 mg every 6 hours as needed ? DuoNebs every 12 hours #Acute kidney injury #Lactic acidosis type B, resolved DDx: Prerenal versus ATN versus obstructive Has history of BPH and takes Flomax Creatinine of 2.5 -> 2.2 after fluids Creatinine clearance 39; GFR 32 Lactate 2.3 -> 1.6 -> 1.3 Plan: ? NS 150 cc/hr ? Urine creatinine and lytes ? Avoid nephrotoxic agents ? Renally dose medicines ? Santamaria #History of essential hypertension #Hx of HFpEF with grade 1 diastolic dysfunction Echo from 2022: The transthoracic study is normal by two-dimensional, color flow imaging and Doppler interrogation. Normal left ventricular size and function. Approximate ejection fraction is 60%. No wall motion abnormalities noted. Trace mitral and trace tricuspid regurgitation noted. Plan: ? Will hold on resuming blood pressure medicines at this time in setting of sepsis #History of BPH Will hold on resuming Flomax Plan: ? Santamaria #Chronic venous insufficiency #History of severe peripheral vascular disease Patient has gotten multiple procedures including aspiration for his condition Has been seen by orthopedic physicians Sees wound care once a week Plan: ? As above ? Wound care #History of substance abuse #History of hepatitis C Takes methadone 10 mL every Thursday Plan: ? Will hold on resuming methadone at this time ? Consider neonatal social worker referral ? Consider checking hep C titers #Health Maintenance Disposition: MedSurg DVT prophylaxis: Heparin q12h GI prophylaxis: Protonix Diet: Cardiac CODE STATUS: Full Patient seen and care discussed with my attending physician, Dr. aBiley Land, PGY-1
[2024-06-28] VITALS (9 sets, daily range): BP systolic 90–137; BP diastolic 52–77; PULSE 83–98; RESP 16–22; TEMP 36.2–37; O2SAT 92–99; BMI 45.1
[2024-06-28] MEDS: oxyCODONE/APAP 5/325 TABLET 1 TAB PO ×3 (00:59→21:10)
[2024-06-28] MEDS: SODIUM CHLORIDE 0.9% 1000 ML 1,000 ML 150 ML IV (01:05)
[2024-06-28] MEDS: DOXYCYCLINE INJ 100 MG in SODIUM CHLORIDE 0.9% (POP) 100 ML IV ×3 (01:07→21:10)
[2024-06-28] MEDS: MELATONIN 3 MG TABLET PO ×2 (01:17→21:10)
[2024-06-28 01:29] LABS: Creatinine,Random Urine 150 mg/dL (30-125); Potassium,Urine Random 54 mMol/L (12-62); Sodium,Urine Random < 15.0 mMol/L (20.0-110.0)
[2024-06-28 01:56] LABS: Chloride,Urine Random < 20.0 mMol/L (55.0-125.0)
[2024-06-28] MEDS: PIPER/TAZO 2.25 GM 2.25 GM/50 ML BAG IV ×4 (02:28→17:23)
--- NOTE | 2024-06-28 02:28 | PC.NURSE ---
Unable to scan barcode of Zosyn 2.25 mg IV. Medication administration verified and witnessed by eLxii Pena RN.
[2024-06-28 06:02] LABS: Basophils % (Auto) 0 % (0-2.5); Eosinophils % (Auto) 0 % (0-10); Hematocrit 36.4 % (41.0-53.0); Hemoglobin 12.2 g/dL (13.5-16.0); Immature Granulocytes % (Auto) 1 % (0-0); Immature Granulocytes Auto 0.18 Thou/mm3 (0.00-0.00); Lymphocytes # (Auto) 1.3 Thou/mm3 (1.0-4.8); Lymphocytes % (Auto) 6 % (10-50); Mean Corpuscular HGB Conc 33.5 g/dl (31.0-37.0); Mean Corpuscular Hemoglobin 28.8 pg (25.0-35.0); Mean Corpuscular Volume 86 fL (80-100); Monocytes # (Auto) 1.3 Thou/mm3 (0.0-0.8); Monocytes % (Auto) 6 % (0-12); Neutrophils # (Auto) 17.6 Thou/mm3 (1.8-7.7); Neutrophils % (Auto) 86 % (37-80); Nucleated Red Blood Cell % 0 /100 WBC (0); Platelet Count 154 Thou/mm3 (140-440); RDW Standard Deviation 41.1 fL (35.1-43.9); Red Blood Count 4.24 Miln/mm3 (4.50-5.90)
[2024-06-28 06:09] LABS: White Blood Count 20.4 Thou/mm3 (3.8-10.6)
[2024-06-28 06:23] LABS: Partial Thromboplastin Time 29.3 Seconds (22.0-36.0); Prothrombin Time 11.2 Seconds (9.0-12.2)
[2024-06-28 06:36] LABS: Alanine Aminotransferase 35 U/L (10-49); Albumin, Serum 3.1 gm/dL (3.4-4.8); Albumin/Globulin Ratio 0.9 (1.2-2.2); Alkaline Phosphatase 91 U/L (46-116); Anion Gap 9 (7-16); Aspartate Amino Transferase 37 U/L (0-34); BUN/Creatinine Ratio 22 Ratio (12-20); Bilirubin,Total 0.3 mg/dL (0.3-1.2); Blood Urea Nitrogen 39 mg/dL (9-23); Calcium 8.2 mg/dL (8.3-10.6); Calcium (Corrected) 8.9 mg/dL (8.5-10.1); Carbon Dioxide 21.2 mMol/L (20.0-31.0); Cardiac Risk Estimate 2.9 RATIO (4.0-6.7); Chloride 106 mMol/L (98-107); Cholesterol 87 mg/dL (132-200); Creatinine (Component) 1.8 mg/dL (0.6-1.3); Estimated Creatinine Clearance 48.8 mL/min (>60); Globulin 3.3 gm/dL (2.3-3.5); Glucose 96 mg/dL (74-106); HDL Cholesterol 30 mg/dL (40-60); LDL Cholesterol,Calculated 35 mg/dL (0-130); Magnesium 1.8 mg/dL (1.6-2.6); Osmolality,Calculated 281 (275-295); Phosphorous 4.3 mg/dL (2.4-5.1); Potassium 3.8 mMol/L (3.4-5.1); Sodium 136 mMol/L (136-145); Total Protein 6.4 gm/dL (5.7-8.2); Triglycerides 109 mg/dL (30-150); eGFR 40 See Note
[2024-06-28] MEDS: PANTOPRAZOLE INJ 40 MG VIAL IVP (08:19)
[2024-06-28] MEDS: GABAPENTIN 300 MG CAPSULE PO ×2 (08:19→21:10)
[2024-06-28] MEDS: HEPARIN SOD INJ 5000 UNIT/ML VIAL SC ×2 (08:19→21:10)
--- NOTE | 2024-06-28 09:49 | PD.SURCONS ---
HPI Consult details History of present illness: 68M with HTN, HCV, PAD with chronic venous insufficiency and chronic RLE wounds brought to ER from [facility] 06/27 due to redness of the right lower extremity. Pt noted the redness a few days before presentation, associated with pain and light yellow drainage.. Pt has been seen at wound care for the RLE May 2024 PMH: HTN, HCV, PAD PSHx: Remote R knee surgery Meds: Includes cilostazol, methadone Allergies: NKDA Social hx: Non-ambulatory, resides in [place] for past 2 years Review of Systems Review of Systems ROS Unobtainable: All systems reviewed & no additional complaints except as documented Meds Home Medications and Allergies Home Medications ?Medication ?Instructions ?Recorded ?Confirmed ?Type albuterol sulfate 90 mcg/actuation 1 puff inhalation QDAY PRN 09/30/21 10/20/23 History aerosol inhaler Shortness Of Breath Or Wheezing celecoxib 200 mg capsule 1 cap PO BID 09/30/21 10/20/23 History tamsulosin 0.4 mg capsule 1 cap PO QDAY 09/30/21 10/20/23 History gabapentin 300 mg capsule 300 mg PO BID 11/13/21 10/20/23 History Allergies Allergy/AdvReac Type Severity Reaction Status Date / Time No Known Allergies Allergy Verified 06/27/24 18:24 Exam Vital Signs Temp Pulse Resp BP Pulse Ox O2 Del Method O2 Flow Rate 98.4 F 84 18 120/70 94 L Room Air 4 06/28/24 08:00 06/28/24 08:00 06/28/24 08:00 06/28/24 08:00 06/28/24 08:00 06/28/24 08:00 06/28/24 04:00 Constitutional Constitutional: no acute distress Routine Respiratory Exam Respiratory: Present no resp distress Routine Extremities Exam Comments: erythema of the right leg most pronounced at the medial thigh extending posteriorly, which is mildly tender but not fluctuant, no signs of crepitus. Ulceration at the knee with fibrinous base Results Results: Laboratory Laboratory results: results reviewed Assessment & Plan Plan 68M with HTN, HCV, PAD with chronic venous insufficiency and chronic RLE wounds brought to ER from [facility] 06/27 due to RLE cellulitis. While the erythema is extensive there is no sign of abscess or necrotizing infection, not needing surgical intervention F/u CT RLE Continue abx Will follow up
[2024-06-28] MEDS: ALBUTEROL/IPRATROPIUM (Duoneb) RT SOL 3 ML NEBU INH ×2 (09:53→21:17)
[2024-06-28] MEDS: MORPHINE SULF INJ 10 MG/ML VIAL 2 MG IVP ×2 (11:08→16:13)
--- NOTE | 2024-06-28 11:50 | XR_ITS ---
Examination: CT right lower extremity, without contrast. 2-D sagittal reconstructions. 2-D coronal reconstructions. 3-D reconstructions. Date and time of exam:June 28, 2024 1632 hours Comparison February 02, 2023 INDICATIONS: Right leg redness swelling and pain beginning one week ago CTDI: vol (mGy):13.9 DLP: (mGycm):1362 Technique: Multiple 1.25 mm axial sections of the right lower extremity without intravenous contrast have been obtained. 2-D sagittal and coronal reconstructions have been obtained. 3-D reconstructions have been obtained. Low dose protocols were performed. One or more of the following dose reduction techniques were used; automated exposure control, adjustment of the mA and/or KV according to patient size, use of iterative reconstruction technique. Findings: Edema in the subcutaneous fatty tissue of the thigh Moderate to large knee effusion Significant edema and skin thickening in the right lower leg Cortical bone destruction again noted involving the lateral femoral condyle with possible antibiotic pellets Cortical bone destruction posterior surface of the patella Cortical bone destruction medial tibial plateau No soft tissue abscess IMPRESSION: Diffuse edema in the lower leg as above Osteomyelitis lateral femoral condyle, posterior patella, medial tibial plateau with septic arthritis appearance
--- NOTE | 2024-06-28 14:32 | PC.SS ---
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 He is expecting to return. Patient is alert/oriented. He is non ambulatory. Patient was admitted for sepsis and cellulitis of right leg. Referral for surgery placed. Dr. Baez. Patient plans on returning to facility. R/o osteo. Patient's alternate medical decision maker is his brother, Chad. Patient will need gurney transport upon discharge.
--- NOTE | 2024-06-28 15:42 | ESPR_ITS ---
<Statement entered by Lisa Giron MD - 06/29/24 06:05> I discussed with and supervised the technical support intern physician who took care of this patient. I personally saw and examined the patient and discussed the assessment and plan with the entire medicine team, including my attending Dr. Garland, I agree with most of the assessment and plan as documented below Lisa Giron M.D. PGY-2 Documentation for date of: 06/28/24 Subjective Subjective Interval history: No overnight events. Patient seen and examined at bedside. Patient endorses significant pain of right leg. Patient also endorsing anxiety, getting worse, requesting his home methadone. Patient denies fevers, chills, nausea, vomiting, shortness of breath, chest pain. Pending CT leg, follow-up. Continue IV antibiotics. Encourage oral hydration. Ordered methadone, pharmacy to confirm correct dosage with clinic. Exam Vital Signs Temp Pulse Resp BP Pulse Ox O2 Del Method O2 Flow Rate 98.4 F 84 16 120/70 99 Room Air 3 06/28/24 08:00 06/28/24 09:54 06/28/24 09:54 06/28/24 08:00 06/28/24 09:54 06/28/24 08:00 06/28/24 09:54 Narrative Exam PE: Gen: Well-developed and well-nourished. Obese. HEENT: NCAT, PERRLA, EOMI, MMM, anicteric conjunctivae. CVS: normal S1 and S2. RRR. No M/R/G. Resp: CTA B/L. No rhonchi, rales, crackles or wheezing. Poor lung sounds due to body habitus. Abd: soft, non-tender, non-distended. MSK: Good ROM in BUE & BLE. Bilateral lower extremity 2+ pitting edema. Bilateral stasis dermatitis. Right thigh blanching erythema, multiple blisters, oozing serous fluid. Large scab over right knee, old. Large wound to right calf, granulation tissue, chronic. Right lower extremity oozing serous fluid throughout. Neuro: CN II-XII grossly intact. Strength 5/5 in BUE & BLE. Alert and oriented x3. Psych: appropriate mood and affect. Objective Labs 06/28/24 04:37 06/28/24 04:37 Labs: Laboratory Results - last 24 hr 06/27/24 06/27/24 06/27/24 18:41 19:14 20:50 WBC RBC Hgb Hct MCV MCH MCHC RDW Std Deviation Plt Count Neut % (Auto) Lymph % (Auto) [place] % (Auto) Eos % (Auto) Baso % (Auto) Neut # (Auto) Lymph # (Auto) [place] # (Auto) Eos # (Auto) Baso # (Auto) Immature Gran # (Auto) Absolute Nucleated RBC Immature Gran % Nucleated RBC % PT INR APTT Sodium 136 Potassium 3.9 Chloride 108 H Carbon Dioxide 19.4 L Anion Gap 9 BUN 42 H Creatinine 2.2 H Estim Creat Clear Calc 39.1 L eGFR 32 L BUN/Creatinine Ratio 19 Glucose 92 Calculated Osmolality 282 Lactic Acid 1.6 1.3 Calcium 8.4 Corrected Calcium Phosphorus Magnesium Total Bilirubin AST ALT Alkaline Phosphatase Total Protein Albumin Globulin Albumin/Globulin Ratio Triglycerides Cholesterol LDL Cholesterol, Calc HDL Cholesterol Cholesterol/HDL Ratio TSH Ur Collection Type Clean Catch Urine Color Yellow Urine Clarity Turbid A Urine pH 5.0 Ur Specific [place] 1.024 Urine Protein 1+ A Urine Glucose (UA) Negative Urine Ketones Negative Urine Blood Negative Urine Nitrite Negative Urine Bilirubin Negative Urine Urobilinogen (Auto) 3.0 Ur Leukocyte Esterase Negative Urine RBC 3 Urine WBC 5 Ur Squamous Epith Cells 1 Urine Bacteria Rare Ur Random Creatinine Ur Random Sodium Ur Random Potassium Ur Random Chloride 06/28/24 06/28/24 00:31 04:37 WBC 20.4 H RBC 4.24 L Hgb 12.2 L Hct 36.4 L MCV 86 MCH 28.8 MCHC 33.5 RDW Std Deviation 41.1 Plt Count 154 Neut % (Auto) 86 H Lymph % (Auto) 6 L [place] % (Auto) 6 Eos % (Auto) 0 Baso % (Auto) 0 Neut # (Auto) 17.6 H Lymph # (Auto) 1.3 [place] # (Auto) 1.3 H Eos # (Auto) 0.0 Baso # (Auto) 0.0 Immature Gran # (Auto) 0.18 H Absolute Nucleated RBC 0.00 Immature Gran % 1 H Nucleated RBC % 0 PT 11.2 INR 1.0 APTT 29.3 Sodium 136 Potassium 3.8 Chloride 106 Carbon Dioxide 21.2 Anion Gap 9 BUN 39 H Creatinine 1.8 H Estim Creat Clear Calc 48.8 L eGFR 40 L BUN/Creatinine Ratio 22 H Glucose 96 Calculated Osmolality 281 Lactic Acid Calcium 8.2 L Corrected Calcium 8.9 Phosphorus 4.3 Magnesium 1.8 Total Bilirubin 0.3 AST 37 H ALT 35 Alkaline Phosphatase 91 Total Protein 6.4 Albumin 3.1 L Globulin 3.3 Albumin/Globulin Ratio 0.9 L Triglycerides 109 Cholesterol 87 L LDL Cholesterol, Calc 35 HDL Cholesterol 30 L Cholesterol/HDL Ratio 2.9 L TSH 1.60 Ur Collection Type Urine Color Urine Clarity Urine pH Ur Specific [place] Urine Protein Urine Glucose (UA) Urine Ketones Urine Blood Urine Nitrite Urine Bilirubin Urine Urobilinogen (Auto) Ur Leukocyte Esterase Urine RBC Urine WBC Ur Squamous Epith Cells Urine Bacteria Ur Random Creatinine 150 H Ur Random Sodium < 15.0 L Ur Random Potassium 54 Ur Random Chloride < 20.0 L Quality Measures Quality Measures sepsis Current suspected stage: sepsis Possible source: skin/soft tissue and wound Blood cultures ordered: completed in ED Antibiotic ordered: Yes Advance care planning discussed with:: patient Assessment & Plan Assessment Current Active Medications: Generic Name Dose Route Start Last Admin Trade Name Freq PRN Reason Stop Dose Admin Acetaminophen 650 mg 06/28/24 05:10 Acetaminophen 325 Mg Tablet PO 07/27/24 23:09 Q6H PRN Fever >100 or pain 1-3 Albuterol/Ipratropium 3 ml 06/28/24 09:00 06/28/24 09:53 Albuterol/Ipratropium (Duoneb) Rt Alexus 3 Ml Nebu INH 07/28/24 08:59 3 ml BID SILVIA Administration Gabapentin 300 mg 06/28/24 09:00 06/28/24 08:19 Gabapentin 300 Mg Capsule PO 07/28/24 08:59 300 mg BID SILVIA Administration Heparin Sodium (Porcine) 5,000 unit 06/28/24 09:00 06/28/24 08:19 Heparin Sod Inj 5000 Unit/Ml Vial SC 07/12/24 08:59 5,000 unit Q12H SILVIA Administration Doxycycline Hyclate 100 mg/ 100 mls @ 100 mls/hr 06/28/24 09:00 06/28/24 08:20 Sodium Chloride IV 07/05/24 08:59 100 mls/hr BID SILVIA Administration Piperacillin/Tazobactam/Dextrose 2.25 gm in 50 mls @ 12.5 mls/hr 06/28/24 06:00 06/28/24 12:44 Zosyn IV 07/05/24 05:59 12.5 mls/hr Q6H SILVIA Administration Melatonin 3 mg 06/27/24 23:20 06/28/24 01:17 Melatonin 3 Mg Tablet PO 07/27/24 23:19 3 mg HS SILVIA Administration Methadone HCl 100 mg 06/29/24 09:00 Methadone Hcl 10 Mg Tablet PO 07/04/24 08:59 QDAY SILVIA Protocol Morphine Sulfate 2 mg 06/28/24 01:27 06/28/24 11:08 Morphine Sulf Inj 10 Mg/Ml Vial IVP 07/03/24 01:26 2 mg Q4HR PRN Administration Pain 7-10 Oxycodone/Acetaminophen 1 tab 06/27/24 23:10 06/28/24 08:19 Oxycodone/Apap 5/325 Tablet PO 07/02/24 23:09 1 tab Q6H PRN Administration PAIN SCALE 4-6 (Moderate Pantoprazole Sodium 40 mg 06/28/24 09:00 06/28/24 08:19 Pantoprazole Inj 40 Mg Vial IVP 07/28/24 08:59 40 mg QDAY SILVIA Administration Plan 68 y/o male with PMHx severe peripheral vascular disease with chronic venous insufficiency, essential hypertension, hepatitis C, BPH, GERD, previous knee effusions requiring aspirations, HFpEF (with grade 1 diastolic dysfunction) who is for acute hypoxic respiratory failure and sepsis. #Acute hypoxic respiratory failure #Sepsis #RLE cellulitis Tachycardic, white count 23, actate 2.3 -> 1.6 -> 1.3. Patient was given nitro paste in ambulance, likely culprit of why patient was hypotensive. Sepsis due to 2/4 SIRS criteria with acute sepsis-related organ dysfunction as evidence by DEV Given Sepsis Bolus: 2.9 L Spoke with general surgery, Dr. Baez, low suspicion for Jim's Zoysn and Doxycycline as there is low suspicion for Jim's Await CT to evaluate for necrotizing fasciitis andor osteomyelitis -Zosyn 2.5 mg Q6H IV renally dosed -Doxycycline 100 mg twice daily IV -Follow-up MRSA screen -Follow-up urine cultures -Follow-up blood cultures -General Surgery consulted, appreciate recs -Continue with oxygen, wean down as tolerated -Tylenol for antipyretics -Resumed home Percocet 5 mg every 6 hours as needed -DuoNebs every 12 hours #Acute kidney injury, improving #Lactic acidosis type B, resolved DDx: Prerenal versus ATN versus obstructive Has history of BPH and takes Flomax Creatinine of 2.5 -> 2.2 after fluids Creatinine clearance 39; GFR 32 Lactate 2.3 -> 1.6 -> 1.3 -Encourage oral hydration -Urine creatinine and lytes -Avoid nephrotoxic agents -Renally dose medicines -Santamaria #History of essential hypertension #Hx of HFpEF with grade 1 diastolic dysfunction Echo from 2022: The transthoracic study is normal by two-dimensional, color flow imaging and Doppler interrogation. Normal left ventricular size and function. Approximate ejection fraction is 60%. No wall motion abnormalities noted. Trace mitral and trace tricuspid regurgitation noted. Patient currently denies shortness of breath or chest pain. -Will hold on resuming blood pressure medicines at this time in setting of sepsis #History of BPH Will hold on resuming Flomax -Santamaria #Chronic venous insufficiency #History of severe peripheral vascular disease Patient has gotten multiple procedures including aspiration for his condition Has been seen by orthopedic physicians Sees wound care once a week -As above -Wound care #History of substance abuse #History of hepatitis C Takes methadone 100 mg every Thursday -Order placed to resume home methadone, pharmacy to confirm dosage DVT prophylaxis: Heparin q12h GI prophylaxis: Protonix Diet: Cardiac Lines: PIV CODE STATUS: Full Plan of care discussed with senior resident Dr. Giron PGY?[address] Garland. Miguel Reynolds MD PGY?1 Attending Provider Attestation/Addendum I attest that I was physically present for the evaluation, physical examination, lab and imaging review of the patient with the residents. I discussed the case with the residents and agree with the findings and plans of care as documented above. At bedside, patient complains of right leg pain. He has bilateral lower extremity edema with status dermatitis. On the right leg he has erythema, elevated temperature, tenderness around his thigh area, knee extending towards his leg. Also noted to have multiple blisters over his thigh with oozing of serous fluid. There is a large wound on the right calf with granulation tissue which patient states is chronic and has been following with outpatient wound care. We will continue with IV Zosyn and doxycycline pending culture results. General surgery have been following, recommended medical management for now. X- ray of the leg has been obtained, shows findings concerning for osteomyelitis, discussed with general surgery agreed on getting CT of the lower limb to evaluate for osteomyelitis and necrotizing fasciitis. Patient states he is on methadone program, currently on IV opiates for pain control. We will confirm with pharmacy and resume his methadone. Kidney function have been improving, we will encourage oral hydration. Wound care following. Iza Garland MD
[2024-06-29] VITALS (9 sets, daily range): BP systolic 131–147; BP diastolic 68–98; PULSE 68–92; RESP 18–24; TEMP 36.3–37.2; O2SAT 92–99
[2024-06-29] MEDS: PIPER/TAZO 2.25 GM 2.25 GM/50 ML BAG IV ×5 (00:26→23:50)
[2024-06-29 06:16] LABS: Basophils # (Auto) 0.1 Thou/mm3 (0.0-0.2); Basophils % (Auto) 0 % (0-2.5); Eosinophils # (Auto) 0.1 Thou/mm3 (0.0-0.5); Eosinophils % (Auto) 0 % (0-10); Hematocrit 37.2 % (41.0-53.0); Hemoglobin 12.3 g/dL (13.5-16.0); Immature Granulocytes % (Auto) 2 % (0-0); Immature Granulocytes Auto 0.36 Thou/mm3 (0.00-0.00); Lymphocytes # (Auto) 1.3 Thou/mm3 (1.0-4.8); Lymphocytes % (Auto) 8 % (10-50); Mean Corpuscular HGB Conc 33.1 g/dl (31.0-37.0); Mean Corpuscular Hemoglobin 28.3 pg (25.0-35.0); Mean Corpuscular Volume 86 fL (80-100); Monocytes # (Auto) 1.4 Thou/mm3 (0.0-0.8); Monocytes % (Auto) 9 % (0-12); Neutrophils % (Auto) 81 % (37-80); Nucleated Red Blood Cell % 0 /100 WBC (0); Platelet Count 182 Thou/mm3 (140-440); RDW Standard Deviation 41.5 fL (35.1-43.9); Red Blood Count 4.34 Miln/mm3 (4.50-5.90); White Blood Count 16.1 Thou/mm3 (3.8-10.6)
[2024-06-29 07:14] LABS: Alanine Aminotransferase 40 U/L (10-49); Albumin, Serum 3.1 gm/dL (3.4-4.8); Albumin/Globulin Ratio 0.9 (1.2-2.2); Alkaline Phosphatase 91 U/L (46-116); Anion Gap 10 (7-16); Aspartate Amino Transferase 60 U/L (0-34); BUN/Creatinine Ratio 24 Ratio (12-20); Bilirubin,Total 0.3 mg/dL (0.3-1.2); Blood Urea Nitrogen 24 mg/dL (9-23); Calcium 8.6 mg/dL (8.3-10.6); Calcium (Corrected) 9.3 mg/dL (8.5-10.1); Carbon Dioxide 19.6 mMol/L (20.0-31.0); Chloride 108 mMol/L (98-107); Estimated Creatinine Clearance 87.8 mL/min (>60); Globulin 3.6 gm/dL (2.3-3.5); Glucose 86 mg/dL (74-106); Osmolality,Calculated 278 (275-295); Phosphorous 2.9 mg/dL (2.4-5.1); Potassium 4.5 mMol/L (3.4-5.1); Sodium 138 mMol/L (136-145); Total Protein 6.7 gm/dL (5.7-8.2); eGFR > 60 See Note
[2024-06-29] MEDS: METHADONE HCL 10 MG TABLET 100 MG PO (08:06)
[2024-06-29] MEDS: HEPARIN SOD INJ 5000 UNIT/ML VIAL SC ×2 (08:07→20:25)
[2024-06-29] MEDS: DOXYCYCLINE INJ 100 MG in SODIUM CHLORIDE 0.9% (POP) 100 ML IV ×2 (08:07→20:18)
[2024-06-29] MEDS: GABAPENTIN 300 MG CAPSULE PO ×2 (08:07→20:18)
[2024-06-29] MEDS: PANTOPRAZOLE INJ 40 MG VIAL IVP (08:07)
[2024-06-29] MEDS: ALBUTEROL/IPRATROPIUM (Duoneb) RT SOL 3 ML NEBU INH ×2 (10:08→20:46)
--- NOTE | 2024-06-29 10:13 | PD.SURPROG ---
Documentation for date of: 06/29/24 Subjective Subjective Brief History: 68M with HTN, HCV, PAD with chronic venous insufficiency and chronic RLE wounds brought to ER from [facility] 06/27 due to redness of the right lower extremity. Pt noted the redness a few days before presentation, associated with pain and light yellow drainage.. Pt has been seen at wound care for the RLE May 2024 PMH: HTN, HCV, PAD PSHx: Remote R knee surgery Meds: Includes cilostazol, methadone Allergies: NKDA Social hx: Non-ambulatory, resides in [place] for past 2 years Narrative: Pt reports stable RLE pain, WBC is downtrending, CT yesterday showed osteomyelitis and signs of possible septic arthritis Exam Vital Signs Temp Pulse Resp BP Pulse Ox O2 Del Method O2 Flow Rate 98.2 F 90 18 145/82 H 94 L Room Air 3 06/29/24 08:00 06/29/24 08:00 06/29/24 08:00 06/29/24 08:00 06/29/24 08:00 06/29/24 08:00 06/28/24 09:54 Constitutional Constitutional: no acute distress Routine Respiratory Exam Respiratory: Present no resp distress Routine Extremities Exam Comments: RLE erythema receded from previously made markings, no fluctuance Results Results: Laboratory Laboratory results: results reviewed Results: Imaging Imaging narrative: CT reviewed Assessment & Plan Plan 68M with HTN, HCV, PAD with chronic venous insufficiency and chronic RLE wounds brought to ER from [facility] 06/27 due to RLE cellulitis. While the erythema is extensive there is no sign of abscess or necrotizing infection Follow up ortho recs
--- NOTE | 2024-06-29 10:24 | PD.ORTHPN ---
Exam Vital Signs Temp Pulse Resp BP Pulse Ox O2 Del Method O2 Flow Rate 98.2 F 92 20 145/82 H 96 Room Air 3 06/29/24 08:00 06/29/24 10:11 06/29/24 10:11 06/29/24 08:00 06/29/24 10:11 06/29/24 08:00 06/28/24 09:54 Objective - Ortho Labs 06/29/24 05:32 06/29/24 05:32 Labs: Laboratory Results - last 24 hr 06/29/24 05:32 WBC 16.1 H RBC 4.34 L Hgb 12.3 L Hct 37.2 L MCV 86 MCH 28.3 MCHC 33.1 RDW Std Deviation 41.5 Plt Count 182 Neut % (Auto) 81 H Lymph % (Auto) 8 L [place] % (Auto) 9 Eos % (Auto) 0 Baso % (Auto) 0 Neut # (Auto) 13.0 H Lymph # (Auto) 1.3 [place] # (Auto) 1.4 H Eos # (Auto) 0.1 Baso # (Auto) 0.1 Immature Gran # (Auto) 0.36 H Absolute Nucleated RBC 0.00 Immature Gran % 2 H Nucleated RBC % 0 Sodium 138 Potassium 4.5 D Chloride 108 H Carbon Dioxide 19.6 L Anion Gap 10 BUN 24 H Creatinine 1.0 D Estim Creat Clear Calc 87.8 eGFR > 60 BUN/Creatinine Ratio 24 H Glucose 86 Calculated Osmolality 278 Calcium 8.6 Corrected Calcium 9.3 Phosphorus 2.9 Magnesium 2.0 Total Bilirubin 0.3 AST 60 H ALT 40 Alkaline Phosphatase 91 Total Protein 6.7 Albumin 3.1 L Globulin 3.6 H Albumin/Globulin Ratio 0.9 L Assessment & Plan Diagnosis (1) Osteomyelitis: Status: Acute Assessment Additional comments: Please order esr, crp, and xrays of femur and knee for an orthopaedic consult.
[2024-06-29 10:32] LABS: Sed Rate (ESR) 78 mm/hr (0-20)
[2024-06-29 10:51] LABS: C-Reactive Protein 22.2 mg/dL (0.0-0.9)
--- NOTE | 2024-06-29 13:40 | ESPR_ITS ---
<Statement entered by Valerie Smith MD - 06/29/24 19:25> I discussed with and supervised the internal auditor physician who took care of this patient. I personally saw and examined the patient and discussed the assessment and plan with the entire medicine team, including my attending Dr. Lake, I agree with the assessment and plan as documented below Patient seen and examined at bedside today. Labs and imaging reviewed. No overnight acute events This morning the bedside patient stated that continued to have significant pain on the right leg as well as on the knee. CT showed osteomyelitis and septic arthritis for which orthopedic surgery was consulted for further recommendations, will continue IV antibiotics and infectious disease was consulted. Valerie Smith MD PGY-3 Disclaimer: Despite multiple revisions, due to the dictation software being used, the document bellow may not be free of grammatical errors including phonetic/typographic errors. However, this does not deter from our commitment to providing health care in the patient's best interest in mind. <Statement entered by Lisa Giron MD - 06/29/24 18:42> Patient seen and examined at bedside. No acute overnight events reported. Patient continues to have right leg pain. Will add Toradol for pain control. CT showed osteomyelitis and septic arthritis. Dr. Luevano, jonnathan was consulted and recommended to continue with IV antibiotics, and if patient's symptoms worsen will consider possible amputation. Pending cultures, and will consult ID for further recommendations. I discussed with and supervised the internal auditor physician who took care of this patient. I personally saw and examined the patient and discussed the assessment and plan with the entire medicine team, including my attending , I agree with most of the assessment and plan as documented below Lisa Giron M.D. PGY-2 Disclaimer: Despite multiple revisions, due to the dictation software being used, the document bellow may not be free of grammatical errors including phonetic/typographic errors. However, this does not deter from our commitment to providing health care in the patient's best interest in mind. Documentation for date of: 06/29/24 Subjective Subjective Interval history: No overnight events. Patient seen and examined at bedside. Patient continues to endorse pain of right leg, denies fever, chills, shortness of breath, nausea, vomiting. Added ketorolac for better pain control CT showed signs of osteomyelitis, possible symptomatic. Peds consulted, patient has history of chronic septic arthritis, no acute intervention. ID consulted for osteomyelitis. Exam Vital Signs Temp Pulse Resp BP Pulse Ox O2 Del Method O2 Flow Rate 97.8 F 68 19 131/98 H 94 L Room Air 3 06/29/24 12:00 06/29/24 12:00 06/29/24 12:00 06/29/24 12:00 06/29/24 12:00 06/29/24 12:00 06/28/24 09:54 Narrative Exam PE: Gen: Well-developed and well-nourished. Obese. HEENT: NCAT, PERRLA, EOMI, MMM, anicteric conjunctivae. CVS: normal S1 and S2. RRR. No M/R/G. Resp: CTA B/L. No rhonchi, rales, crackles or wheezing. Poor lung sounds due to body habitus. Abd: soft, non-tender, non-distended. MSK: Good ROM in BUE & BLE. Bilateral lower extremity 2+ pitting edema. Bilateral stasis dermatitis. Right thigh blanching erythema, multiple blisters deroofed, oozing serous fluid. Large scab over right knee, old, bandaged. Large wound to right calf, granulation tissue, chronic, bandaged. Right lower extremity oozing serous fluid throughout, bandaged. Neuro: CN II-XII grossly intact. Strength 5/5 in BUE & BLE. Alert and oriented x3. Psych: appropriate mood and affect. Objective Labs 06/29/24 05:32 06/29/24 05:32 Labs: Laboratory Results - last 24 hr 06/29/24 05:32 WBC 16.1 H RBC 4.34 L Hgb 12.3 L Hct 37.2 L MCV 86 MCH 28.3 MCHC 33.1 RDW Std Deviation 41.5 Plt Count 182 Neut % (Auto) 81 H Lymph % (Auto) 8 L [place] % (Auto) 9 Eos % (Auto) 0 Baso % (Auto) 0 Neut # (Auto) 13.0 H Lymph # (Auto) 1.3 [place] # (Auto) 1.4 H Eos # (Auto) 0.1 Baso # (Auto) 0.1 Immature Gran # (Auto) 0.36 H Absolute Nucleated RBC 0.00 Immature Gran % 2 H Nucleated RBC % 0 ESR 78 H Sodium 138 Potassium 4.5 D Chloride 108 H Carbon Dioxide 19.6 L Anion Gap 10 BUN 24 H Creatinine 1.0 D Estim Creat Clear Calc 87.8 eGFR > 60 BUN/Creatinine Ratio 24 H Glucose 86 Calculated Osmolality 278 Calcium 8.6 Corrected Calcium 9.3 Phosphorus 2.9 Magnesium 2.0 Total Bilirubin 0.3 AST 60 H ALT 40 Alkaline Phosphatase 91 C-Reactive Prot, Quant 22.2 H Total Protein 6.7 Albumin 3.1 L Globulin 3.6 H Albumin/Globulin Ratio 0.9 L Quality Measures Quality Measures sepsis Current suspected stage: sepsis Possible source: skin/soft tissue and wound Blood cultures ordered: completed in ED Antibiotic ordered: Yes Advance care planning discussed with:: patient Assessment & Plan Assessment Current Active Medications: Generic Name Dose Route Start Last Admin Trade Name Freq PRN Reason Stop Dose Admin Acetaminophen 650 mg 06/28/24 05:10 Acetaminophen 325 Mg Tablet PO 07/27/24 23:09 Q6H PRN Fever >100 or pain 1-3 Albuterol/Ipratropium 3 ml 06/28/24 09:00 06/29/24 10:08 Albuterol/Ipratropium (Duoneb) Rt Alexus 3 Ml Nebu INH 07/28/24 08:59 3 ml BID SIVLIA Administration Gabapentin 300 mg 06/28/24 09:00 06/29/24 08:07 Gabapentin 300 Mg Capsule PO 07/28/24 08:59 300 mg BID SILVIA Administration Heparin Sodium (Porcine) 5,000 unit 06/28/24 09:00 06/29/24 08:07 Heparin Sod Inj 5000 Unit/Ml Vial SC 07/12/24 08:59 5,000 unit Q12H SILVIA Administration Doxycycline Hyclate 100 mg/ 100 mls @ 100 mls/hr 06/28/24 09:00 06/29/24 08:07 Sodium Chloride IV 07/05/24 08:59 100 mls/hr BID SILVIA Administration Piperacillin/Tazobactam/Dextrose 2.25 gm in 50 mls @ 12.5 mls/hr 06/28/24 06:00 06/29/24 05:06 Zosyn IV 07/05/24 05:59 12.5 mls/hr Q6H SILVIA Administration Melatonin 3 mg 06/27/24 23:20 06/28/24 21:10 Melatonin 3 Mg Tablet PO 07/27/24 23:19 3 mg HS SILVIA Administration Methadone HCl 100 mg 06/29/24 09:00 06/29/24 08:06 Methadone Hcl 10 Mg Tablet PO 07/04/24 08:59 100 mg QDAY SILVIA Administration Protocol Morphine Sulfate 2 mg 06/28/24 01:27 06/28/24 16:13 Morphine Sulf Inj 10 Mg/Ml Vial IVP 07/03/24 01:26 2 mg Q4HR PRN Administration Pain 7-10 Oxycodone/Acetaminophen 1 tab 06/27/24 23:10 06/28/24 21:10 Oxycodone/Apap 5/325 Tablet PO 07/02/24 23:09 1 tab Q6H PRN Administration PAIN SCALE 4-6 (Moderate Pantoprazole Sodium 40 mg 06/28/24 09:00 06/29/24 08:07 Pantoprazole Inj 40 Mg Vial IVP 07/28/24 08:59 40 mg QDAY SILVIA Administration Plan 68 y/o male with PMHx severe peripheral vascular disease with chronic venous insufficiency, essential hypertension, hepatitis C, BPH, GERD, previous knee effusions requiring aspirations, HFpEF (with grade 1 diastolic dysfunction) who is for acute hypoxic respiratory failure and sepsis. #Acute hypoxic respiratory failure, resolved #Sepsis, resolved #RLE cellulitis and osteomyelitis Tachycardic, white count 23, actate 2.3 -> 1.6 -> 1.3. Patient was given nitro paste in ambulance, likely culprit of why patient was hypotensive. Sepsis due to 2/4 SIRS criteria with acute sepsis-related organ dysfunction as evidence by DEV Given Sepsis Bolus: 2.9 L Spoke with general surgery, Dr. Baez, low suspicion for Jim's Zoysn and Doxycycline as there is low suspicion for Jim's CT showed osteomyelitis of patella, femur, tibia, and septic arthritis. 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 Orthopedics consulted, no acute intervention. MRSA screen positive, urine culture negative -Zosyn 2.5 mg Q6H IV renally dosed -Doxycycline 100 mg twice daily IV -Mupirocin 3 times daily -Follow-up blood cultures -General Surgery consulted, appreciate recs -Consulted Ortho, appreciate recommendations -Consulted ID, appreciate recommendations -Tylenol for antipyretics -DuoNebs every 12 hours -Ketorolac 30 mg IV every 6 hours as needed for pain #Acute kidney injury, improving #Lactic acidosis type B, resolved DDx: Prerenal versus ATN versus obstructive Has history of BPH and takes Flomax Creatinine of 2.5 -> 2.2 after fluids Creatinine clearance 39; GFR 32 Lactate 2.3 -> 1.6 -> 1.3 -Encourage oral hydration -Follow daily labs -Avoid nephrotoxic agents -Renally dose medicines -Santamaria #History of essential hypertension #Hx of HFpEF with grade 1 diastolic dysfunction Echo from 2022: The transthoracic study is normal by two-dimensional, color flow imaging and Doppler interrogation. Normal left ventricular size and function. Approximate ejection fraction is 60%. No wall motion abnormalities noted. Trace mitral and trace tricuspid regurgitation noted. Patient currently denies shortness of breath or chest pain. -Resume home meds: Losartan 50 mg p.o. daily #History of BPH Will hold on resuming Flomax -Santamaria #Chronic venous insufficiency #History of severe peripheral vascular disease Patient has gotten multiple procedures including aspiration for his condition Has been seen by orthopedic physicians Sees wound care once a week -As above -Wound care #History of substance abuse #History of hepatitis C Takes methadone 100 mg daily, dose is confirmed by pharmacy -Resume home meds: Methadone 100 mg p.o. daily -Will avoid other opioid medication DVT prophylaxis: Heparin q12h GI prophylaxis: Protonix Diet: Cardiac Lines: PIV CODE STATUS: Full Plan of care discussed with senior residents Dr. Smith PGY?[address] Giron PGY?2, and attending Dr. Lake. Miguel Reynolds MD PGY?1 Attending Provider Attestation/Addendum I have examined the patient, reviewed labs and imaging findings, discussed the case with the resident(s), and reviewed entered orders. I agree with the plan of care as outlined in this note, with these additional summaries/recommendations: Patient seen at bedside. No acute overnight events. He reports minor improvement in right lower leg pain. Right lower extremity cellulitis appears slightly improved. Will continue IV antibiotics and wound care. Blood cultures show no growth at [address] scan of right lower extremity shows diffuse edema and osteomyelitis of the lateral femoral condyle, posterior patella, medial tibial plateau with septic arthritis appearance. Orthopedics was consulted and agrees with current management. If symptoms worsen patient may require amputation. ESR 78 and CRP 22.2. We will consult infectious disease for osteomyelitis. Patient in agreement with PICC line if needed. Patient was also noted to have acute kidney injury on admission which is now resolved. Creatinine now 1.0 and BUN 24. Continue to avoid nephrotoxic agents and renally dose medications. Patient updated on the plan and in agreement. Repeat hematology and chemistry panel in AM. Dr. Aleksandra MD
--- NOTE | 2024-06-29 14:27 | PD.ORTHCON ---
HPI Consult details Reason for consultation narrative: right knee infection and cellulitis History of present illness: Patient is a 68yo male with a chronically infected right knee and complete disruption of the extensor mechanism on the left. He has a history of chronic venous statis ulcers and has had multiple surgeries on both knees for infection and chronic osteomyelitis. I saw him in my office 6 months ago and we discussed that he is not a candidate for a TKA given the chronic osteomyelitis. He reports that he had recent redness of the entire leg. He reports the actual knee does not hurt significantly. He reports that the redness has improved since he has been on antibitoics. Past Medical History Past Medical History Comments PMH COMMENT: chronic osteomyelitis, cellulitis, Meds Home Medications and Allergies Home Medications ?Medication ?Instructions ?Recorded ?Confirmed ?Type albuterol sulfate 90 mcg/actuation 1 puff inhalation QDAY PRN 09/30/21 10/20/23 History aerosol inhaler Shortness Of Breath Or Wheezing celecoxib 200 mg capsule 1 cap PO BID 09/30/21 10/20/23 History tamsulosin 0.4 mg capsule 1 cap PO QDAY 09/30/21 10/20/23 History gabapentin 300 mg capsule 300 mg PO BID 11/13/21 10/20/23 History Allergies Allergy/AdvReac Type Severity Reaction Status Date / Time No Known Allergies Allergy Verified 06/27/24 18:24 Exam Vital Signs Temp Pulse Resp BP Pulse Ox O2 Del Method O2 Flow Rate 97.8 F 68 19 131/98 H 94 L Room Air 3 06/29/24 12:00 06/29/24 12:00 06/29/24 12:00 06/29/24 12:00 06/29/24 12:00 06/29/24 12:00 06/28/24 09:54 Additional findings Additional findings: No acute distress AAOx3 RLE - multiple venous stasis ulcers in leg - erythema that is well demarcated to mid thigh consistent with cellulitis - painless ROM of knee both passive and active - no pain with passive stress of EHL, FHL, PF, DF - compartments soft +DP/PT Results - Ortho Labs 06/29/24 05:32 06/29/24 05:32 Labs: Short CBC 06/29/24 Range/Units 05:32 WBC 16.1 H (3.8-10.6) Thou/mm3 Hgb 12.3 L (13.5-16.0) g/dL Hct 37.2 L (41.0-53.0) % Plt Count 182 (140-440) Thou/mm3 BMP 06/29/24 05:32 Sodium 138 Potassium 4.5 D Chloride 108 H Carbon Dioxide 19.6 L BUN 24 H Creatinine 1.0 D Glucose 86 Calcium 8.6 Liver Function 06/29/24 Range/Units 05:32 Total Bilirubin 0.3 (0.3-1.2) mg/dL AST 60 H (0-34) U/L ALT 40 (10-49) U/L Alkaline Phosphatase 91 (46-116) U/L Albumin 3.1 L (3.4-4.8) gm/dL Imaging Xray: Additional comments: antibitoic beads in femur and severe end stage arthritis Assessment & Plan Problem List (1) Osteomyelitis: Status: Acute Assessment and plan: Patient is a 68yo male with chronic osteomyelitis of the right leg and multiple washouts in the past who presents with erythema and cellultis. He actually has minimal pain with ROM. I would not recommend aspiration currently as he has circumferential erythema overlying any knee aspiration site currently. He is responding well to antibiotics and has cellutitis and chronic osteomyelitis. A general surgeon has already been consulted and agrees that no surgical intervention is necessary as the patient is improving. - continue antibiotics -wound care - recommend amputation if symptoms worsen but it has been improving and patient would like limb salvage if possible given his left knee is nonfunctional
[2024-06-29] MEDS: LOSARTAN POTASSIUM 25 MG TABLET 50 MG PO (15:46)
[2024-06-29] MEDS: MUPIROCIN OINT 2% 15 GM TUBE TOP ×2 (15:47→22:47)
[2024-06-29] MEDS: NICOTINE PATCH 14 MG/24 HR PATCH.TD24 TOP (15:50)
[2024-06-29] MEDS: KETOROLAC INJ 30 MG/ML VIAL IVP (20:18)
[2024-06-29] MEDS: MELATONIN 3 MG TABLET PO (20:18)
[2024-06-30] VITALS (9 sets, daily range): BP systolic 133–165; BP diastolic 70–89; PULSE 72–89; RESP 18–20; TEMP 36.3–36.6; O2SAT 94–99; BMI 44.9
[2024-06-30] MEDS: PIPER/TAZO 2.25 GM 2.25 GM/50 ML BAG IV ×3 (05:28→18:56)
[2024-06-30] MEDS: MUPIROCIN OINT 2% 15 GM TUBE TOP ×3 (05:39→20:42)
[2024-06-30] MEDS: NICOTINE PATCH 14 MG/24 HR PATCH.TD24 TOP (08:16)
[2024-06-30] MEDS: LOSARTAN POTASSIUM 25 MG TABLET 50 MG PO (08:17)
[2024-06-30] MEDS: METHADONE HCL 10 MG TABLET 100 MG PO (08:17)
[2024-06-30] MEDS: HEPARIN SOD INJ 5000 UNIT/ML VIAL SC ×2 (08:18→20:43)
[2024-06-30] MEDS: DOXYCYCLINE INJ 100 MG in SODIUM CHLORIDE 0.9% (POP) 100 ML IV ×2 (08:18→20:42)
[2024-06-30] MEDS: GABAPENTIN 300 MG CAPSULE PO ×2 (08:18→20:42)
[2024-06-30] MEDS: PANTOPRAZOLE INJ 40 MG VIAL IVP (08:19)
[2024-06-30 08:24] LABS: Basophils # (Auto) 0.1 Thou/mm3 (0.0-0.2); Basophils % (Auto) 1 % (0-2.5); Eosinophils # (Auto) 0.1 Thou/mm3 (0.0-0.5); Eosinophils % (Auto) 1 % (0-10); Hematocrit 39.4 % (41.0-53.0); Immature Granulocytes % (Auto) 6 % (0-0); Immature Granulocytes Auto 0.69 Thou/mm3 (0.00-0.00); Lymphocytes # (Auto) 1.4 Thou/mm3 (1.0-4.8); Lymphocytes % (Auto) 11 % (10-50); Mean Corpuscular Hemoglobin 28.4 pg (25.0-35.0); Mean Corpuscular Volume 86 fL (80-100); Monocytes # (Auto) 1.1 Thou/mm3 (0.0-0.8); Monocytes % (Auto) 9 % (0-12); Neutrophils # (Auto) 9.1 Thou/mm3 (1.8-7.7); Neutrophils % (Auto) 73 % (37-80); Nucleated Red Blood Cell % 0 /100 WBC (0); Platelet Count 157 Thou/mm3 (140-440); RDW Standard Deviation 41.7 fL (35.1-43.9); Red Blood Count 4.57 Miln/mm3 (4.50-5.90); White Blood Count 12.5 Thou/mm3 (3.8-10.6)
[2024-06-30 09:02] LABS: Alanine Aminotransferase 45 U/L (10-49); Albumin, Serum 3.2 gm/dL (3.4-4.8); Albumin/Globulin Ratio 0.9 (1.2-2.2); Alkaline Phosphatase 81 U/L (46-116); Anion Gap 7 (7-16); Aspartate Amino Transferase 52 U/L (0-34); BUN/Creatinine Ratio 21 Ratio (12-20); Bilirubin,Total 0.5 mg/dL (0.3-1.2); Blood Urea Nitrogen 17 mg/dL (9-23); Calcium (Corrected) 9.6 mg/dL (8.5-10.1); Carbon Dioxide 23.5 mMol/L (20.0-31.0); Chloride 110 mMol/L (98-107); Creatinine (Component) 0.8 mg/dL (0.6-1.3); Estimated Creatinine Clearance 109.7 mL/min (>60); Globulin 3.7 gm/dL (2.3-3.5); Glucose 98 mg/dL (74-106); Osmolality,Calculated 280 (275-295); Phosphorous 3.6 mg/dL (2.4-5.1); Potassium 4.5 mMol/L (3.4-5.1); Sodium 140 mMol/L (136-145); Total Protein 6.9 gm/dL (5.7-8.2); eGFR > 60 See Note
[2024-06-30] MEDS: ALBUTEROL/IPRATROPIUM (Duoneb) RT SOL 3 ML NEBU INH ×2 (11:08→21:57)
--- NOTE | 2024-06-30 14:22 | ESPR_ITS ---
<Statement entered by Lisa Giron MD - 06/30/24 16:43> Patient seen and examined at bedside. No acute overnight events reported. Patient states his RLE pain is improving. Will plan for PICC line tomorrow after ID recs. Will continue with pain medications and IV Abx for now. I discussed with and supervised the transportation logistics internship physician who took care of this patient. I personally saw and examined the patient and discussed the assessment and plan with the entire medicine team, including my attending , I agree with most of the assessment and plan as documented below Lisa Giron M.D. PGY-2 Disclaimer: Despite multiple revisions, due to the dictation software being used, the document bellow may not be free of grammatical errors including phonetic/typographic errors. However, this does not deter from our commitment to providing health care in the patient's best interest in mind. Documentation for date of: 06/30/24 Subjective Subjective Interval history: No overnight events. Patient seen and examined at bedside. Patient resting well, reports decreased pain and improved range of motion in right leg. Denies fevers, chills, shortness of breath, chest pain, nausea, vomiting. Continue IV antibiotics. Likely place PICC line tomorrow following ID consult. No surgical intervention. Exam Vital Signs Temp Pulse Resp BP Pulse Ox O2 Del Method O2 Flow Rate 97.5 F 87 18 142/73 H 96 Room Air 3 06/30/24 12:00 06/30/24 12:00 06/30/24 12:00 06/30/24 12:00 06/30/24 12:00 06/30/24 12:06/28/24 09:54 Narrative Exam PE: Gen: Well-developed and well-nourished. Obese. HEENT: NCAT, PERRLA, EOMI, MMM, anicteric conjunctivae. CVS: normal S1 and S2. RRR. No M/R/G. Resp: CTA B/L. No rhonchi, rales, crackles or wheezing. Poor lung sounds due to body habitus. Abd: soft, non-tender, non-distended. MSK: Good ROM in BUE & BLE. Bilateral lower extremity 2+ pitting edema. Bilateral stasis dermatitis. Right thigh blanching erythema, multiple blisters deroofed, oozing serous fluid. Large scab over right knee, old, bandaged. Large wound to right calf, granulation tissue, chronic, bandaged. Right lower extremity oozing serous fluid throughout, bandaged. Neuro: CN II-XII grossly intact. Strength 5/5 in BUE & BLE. Alert and oriented x3. Psych: appropriate mood and affect. Objective Labs 06/30/24 08:00 06/30/24 08:10 Labs: Laboratory Results - last 24 hr 06/30/24 06/30/24 08:00 08:10 WBC 12.5 H RBC 4.57 Hgb 13.0 L Hct 39.4 L MCV 86 MCH 28.4 MCHC 33.0 RDW Std Deviation 41.7 Plt Count 157 Neut % (Auto) 73 Lymph % (Auto) 11 [place] % (Auto) 9 Eos % (Auto) 1 Baso % (Auto) 1 Neut # (Auto) 9.1 H Lymph # (Auto) 1.4 [place] # (Auto) 1.1 H Eos # (Auto) 0.1 Baso # (Auto) 0.1 Immature Gran # (Auto) 0.69 H Absolute Nucleated RBC 0.00 Immature Gran % 6 H Nucleated RBC % 0 Sodium 140 Potassium 4.5 Chloride 110 H Carbon Dioxide 23.5 Anion Gap 7 BUN 17 Creatinine 0.8 Estim Creat Clear Calc 109.7 eGFR > 60 BUN/Creatinine Ratio 21 H Glucose 98 Calculated Osmolality 280 Calcium 9.0 Corrected Calcium 9.6 Phosphorus 3.6 Magnesium 2.0 Total Bilirubin 0.5 AST 52 H ALT 45 Alkaline Phosphatase 81 Total Protein 6.9 Albumin 3.2 L Globulin 3.7 H Albumin/Globulin Ratio 0.9 L Quality Measures Quality Measures sepsis Current suspected stage: sepsis Possible source: skin/soft tissue and wound Blood cultures ordered: completed in ED Antibiotic ordered: Yes Advance care planning discussed with:: patient Assessment & Plan Assessment Current Active Medications: Generic Name Dose Route Start Last Admin Trade Name Freq PRN Reason Stop Dose Admin Acetaminophen 650 mg 06/28/24 05:10 Acetaminophen 325 Mg Tablet PO 07/27/24 23:09 Q6H PRN Fever >100 or pain 1-3 Albuterol/Ipratropium 3 ml 06/28/24 09:00 06/30/24 11:08 Albuterol/Ipratropium (Duoneb) Rt Alexus 3 Ml Nebu INH 07/28/24 08:59 3 ml BID SILVIA Administration Gabapentin 300 mg 06/28/24 09:00 06/30/24 08:18 Gabapentin 300 Mg Capsule PO 07/28/24 08:59 300 mg BID SILVIA Administration Heparin Sodium (Porcine) 5,000 unit 06/28/24 09:00 06/30/24 08:18 Heparin Sod Inj 5000 Unit/Ml Vial SC 07/12/24 08:59 5,000 unit Q12H SILVIA Administration Doxycycline Hyclate 100 mg/ 100 mls @ 100 mls/hr 06/28/24 09:00 06/30/24 10:41 Sodium Chloride IV 07/05/24 08:59 Infused BID SILVIA Infusion Piperacillin/Tazobactam/Dextrose 2.25 gm in 50 mls @ 12.5 mls/hr 06/28/24 06:00 06/30/24 12:47 Zosyn IV 07/05/24 05:59 12.5 mls/hr Q6H SILVIA Administration Ketorolac Tromethamine 30 mg 06/29/24 14:35 06/29/24 20:18 Ketorolac Inj 30 Mg/Ml Vial IVP 07/04/24 14:34 30 mg Q6HR PRN Administration PAIN 4-10 Losartan Potassium 50 mg 06/29/24 14:45 06/30/24 08:17 Losartan Potassium 25 Mg Tablet PO 07/29/24 14:44 50 mg QDAY SILVIA Administration Melatonin 3 mg 06/27/24 23:20 06/29/24 20:18 Melatonin 3 Mg Tablet PO 07/27/24 23:19 3 mg HS SILVIA Administration Methadone HCl 100 mg 07/01/24 09:00 Methadone Hcl 10 Mg Tablet PO 07/06/24 08:59 QDAY [facility] Protocol Mupirocin 0 gm 06/29/24 15:44 06/30/24 05:39 Mupirocin Oint 2% 15 Gm Tube TOP 07/06/24 14:44 1 applicatio TID SILVIA Administration Nicotine 14 mg 06/29/24 15:45 06/30/24 08:16 Nicotine Patch 14 Mg/24 Hr Patch.Td24 TOP 07/29/24 15:44 14 mg QDAY SILVIA Administration Pantoprazole Sodium 40 mg 06/28/24 09:00 06/30/24 08:19 Pantoprazole Inj 40 Mg Vial IVP 07/28/24 08:59 40 mg QDAY SILVIA Administration Plan 68 y/o male with PMHx severe peripheral vascular disease with chronic venous insufficiency, essential hypertension, hepatitis C, BPH, GERD, previous knee effusions requiring aspirations, HFpEF (with grade 1 diastolic dysfunction) who is for acute hypoxic respiratory failure and sepsis. #Acute hypoxic respiratory failure, resolved #Sepsis, resolved #RLE cellulitis and osteomyelitis Tachycardic, white count 23, actate 2.3 -> 1.6 -> 1.3. Patient was given nitro paste in ambulance, likely culprit of why patient was hypotensive. Sepsis due to 2/4 SIRS criteria with acute sepsis-related organ dysfunction as evidence by DEV Given Sepsis Bolus: 2.9 L Spoke with general surgery, Dr. Baez, low suspicion for Jim's Zoysn and Doxycycline as there is low suspicion for Jim's CT showed osteomyelitis of patella, femur, tibia, and septic arthritis. 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 Orthopedics consulted, no acute intervention. MRSA screen positive, urine culture negative -Zosyn 2.25 mg Q6H IV renally dosed -Doxycycline 100 mg twice daily IV -Mupirocin 3 times daily -Follow-up blood cultures -General Surgery consulted, appreciate recs -Consulted Ortho, appreciate recommendations -Consulted ID, appreciate recommendations -Tylenol for antipyretics -DuoNebs every 12 hours -Ketorolac 30 mg IV every 6 hours as needed for pain #Acute kidney injury, resolved #Lactic acidosis type B, resolved DDx: Prerenal versus ATN versus obstructive Has history of BPH and takes Flomax Creatinine of 2.5 -> 2.2 after fluids Creatinine clearance 39; GFR 32 Lactate 2.3 -> 1.6 -> 1.3 -Encourage oral hydration -Follow daily labs -Avoid nephrotoxic agents -Renally dose medicines -Santamaria #History of essential hypertension #Hx of HFpEF with grade 1 diastolic dysfunction Echo from 2022: The transthoracic study is normal by two-dimensional, color flow imaging and Doppler interrogation. Normal left ventricular size and function. Approximate ejection fraction is 60%. No wall motion abnormalities noted. Trace mitral and trace tricuspid regurgitation noted. Patient currently denies shortness of breath or chest pain. -Resume home meds: Losartan 50 mg p.o. daily #History of BPH Will hold on resuming Flomax -Santamaria #Chronic venous insufficiency #History of severe peripheral vascular disease Patient has gotten multiple procedures including aspiration for his condition Has been seen by orthopedic physicians Sees wound care once a week -As above -Wound care #History of substance abuse #History of hepatitis C Takes methadone 100 mg daily, dose is confirmed by pharmacy -Resume home meds: Methadone 100 mg p.o. daily -Will avoid other opioid medication -Recommend patient seek outpatient follow-up hepatitis C DVT prophylaxis: Heparin q12h GI prophylaxis: Protonix Diet: Cardiac Lines: PIV CODE STATUS: Full Plan of care discussed with senior resident Dr. Giron PGY?2, and attending Dr. Lake. Miguel Reynolds MD PGY?1 Attending Provider Attestation/Addendum I have examined the patient, reviewed labs and imaging findings, discussed the case with the resident(s), and reviewed entered orders. I agree with the plan of care as outlined in this note, with these additional summaries/recommendations: Patient seen at bedside. No acute overnight events. He reports minor improvement in right lower leg pain. Right lower extremity cellulitis appears slightly improved. Will continue IV antibiotics and wound care. Blood cultures show no growth at [address] scan of right lower extremity shows diffuse edema and osteomyelitis of the lateral femoral condyle, posterior patella, medial tibial plateau with septic arthritis appearance. Orthopedics was consulted and agrees with current management. If symptoms worsen patient may require amputation. ESR 78 and CRP 22.2. We will consult infectious disease for osteomyelitis. Patient in agreement with PICC line which we will order. Patient reports he was found to have osteomyelitis in the same location before and did receive an extended course of abx. Patient was also noted to have acute kidney injury on admission which is now resolved. Creatinine now 0.8 and BUN 17. Continue to avoid nephrotoxic agents and renally dose medications. Patient updated on the plan and in agreement. Repeat hematology and chemistry panel in AM. Dr. Aleksandra MD
[2024-06-30] MEDS: MELATONIN 3 MG TABLET PO (20:42)
[2024-07-01] VITALS (9 sets, daily range): BP systolic 131–151; BP diastolic 71–84; PULSE 73–84; RESP 17–20; TEMP 36.1–36.7; O2SAT 94–99
[2024-07-01] MEDS: PIPER/TAZO 2.25 GM 2.25 GM/50 ML BAG IV ×2 (00:12→05:06)
[2024-07-01] MEDS: KETOROLAC INJ 30 MG/ML VIAL IVP (01:01)
[2024-07-01] MEDS: MUPIROCIN OINT 2% 15 GM TUBE TOP ×3 (05:06→22:26)
[2024-07-01 05:57] LABS: Basophils # (Auto) 0.1 Thou/mm3 (0.0-0.2); Basophils % (Auto) 1 % (0-2.5); Eosinophils # (Auto) 0.3 Thou/mm3 (0.0-0.5); Eosinophils % (Auto) 2 % (0-10); Hematocrit 35.9 % (41.0-53.0); Hemoglobin 11.7 g/dL (13.5-16.0); Immature Granulocytes % (Auto) 10 % (0-0); Immature Granulocytes Auto 1.42 Thou/mm3 (0.00-0.00); Lymphocytes # (Auto) 1.8 Thou/mm3 (1.0-4.8); Lymphocytes % (Auto) 13 % (10-50); Mean Corpuscular HGB Conc 32.6 g/dl (31.0-37.0); Mean Corpuscular Hemoglobin 28.5 pg (25.0-35.0); Mean Corpuscular Volume 87 fL (80-100); Monocytes # (Auto) 1.4 Thou/mm3 (0.0-0.8); Monocytes % (Auto) 10 % (0-12); Neutrophils # (Auto) 9.3 Thou/mm3 (1.8-7.7); Neutrophils % (Auto) 66 % (37-80); Nucleated Red Blood Cell % 0 /100 WBC (0); Platelet Count 198 Thou/mm3 (140-440); RDW Standard Deviation 42.8 fL (35.1-43.9); Red Blood Count 4.11 Miln/mm3 (4.50-5.90); White Blood Count 14.2 Thou/mm3 (3.8-10.6)
[2024-07-01 06:30] LABS: Alanine Aminotransferase 41 U/L (10-49); Albumin, Serum 3.1 gm/dL (3.4-4.8); Albumin/Globulin Ratio 0.9 (1.2-2.2); Alkaline Phosphatase 86 U/L (46-116); Anion Gap 10 (7-16); Aspartate Amino Transferase 50 U/L (0-34); BUN/Creatinine Ratio 19 Ratio (12-20); Bilirubin,Total 0.4 mg/dL (0.3-1.2); Blood Urea Nitrogen 17 mg/dL (9-23); Calcium 8.5 mg/dL (8.3-10.6); Calcium (Corrected) 9.2 mg/dL (8.5-10.1); Carbon Dioxide 22.9 mMol/L (20.0-31.0); Chloride 107 mMol/L (98-107); Creatinine (Component) 0.9 mg/dL (0.6-1.3); Estimated Creatinine Clearance 97.5 mL/min (>60); Globulin 3.6 gm/dL (2.3-3.5); Glucose 76 mg/dL (74-106); Osmolality,Calculated 279 (275-295); Potassium 4.2 mMol/L (3.4-5.1); Sodium 140 mMol/L (136-145); Total Protein 6.7 gm/dL (5.7-8.2); eGFR > 60 See Note
[2024-07-01] MEDS: METHADONE HCL 10 MG TABLET 100 MG PO (08:03)
[2024-07-01] MEDS: LOSARTAN POTASSIUM 25 MG TABLET 50 MG PO (08:04)
[2024-07-01] MEDS: HEPARIN SOD INJ 5000 UNIT/ML VIAL SC ×2 (08:05→20:20)
[2024-07-01] MEDS: PANTOPRAZOLE INJ 40 MG VIAL IVP (08:05)
[2024-07-01] MEDS: GABAPENTIN 300 MG CAPSULE PO ×2 (08:06→20:19)
[2024-07-01] MEDS: DOXYCYCLINE INJ 100 MG in SODIUM CHLORIDE 0.9% (POP) 100 ML IV (08:06)
[2024-07-01] MEDS: NICOTINE PATCH 14 MG/24 HR PATCH.TD24 TOP (08:06)
[2024-07-01 08:51] LABS: Path Review Blood Smear Sent to Pathologist
--- NOTE | 2024-07-01 10:26 | PD.IDPROG ---
Subjective Subjective Interval history: hep c never treated. is a separate issue and remains quite costly, so has to be an outpt thing. unclear how long he was treated before for the knee infection Exam Vital Signs Temp Pulse Resp BP Pulse Ox O2 Del Method O2 Flow Rate 97.3 F 83 17 151/84 H 94 L Room Air 3 07/01/24 08:00 07/01/24 08:04 07/01/24 08:00 07/01/24 08:04 07/01/24 08:00 07/01/24 08:00 06/28/24 09:54 Narrative Exam rt leg infection hx of hep c and substance use and methadone dependence. Objective - Internal Medicine Labs 07/01/24 04:32 07/01/24 04:32 Labs: Laboratory Results - last 24 hr 07/01/24 04:32 WBC 14.2 H RBC 4.11 L Hgb 11.7 L Hct 35.9 L MCV 87 MCH 28.5 MCHC 32.6 RDW Std Deviation 42.8 Plt Count 198 D Neut % (Auto) 66 Lymph % (Auto) 13 [place] % (Auto) 10 Eos % (Auto) 2 Baso % (Auto) 1 Neut # (Auto) 9.3 H Lymph # (Auto) 1.8 [place] # (Auto) 1.4 H Eos # (Auto) 0.3 Baso # (Auto) 0.1 Immature Gran # (Auto) 1.42 H Absolute Nucleated RBC 0.00 Immature Gran % 10 H Nucleated RBC % 0 Smear Path Review Sent to Pathologist Sodium 140 Potassium 4.2 Chloride 107 Carbon Dioxide 22.9 Anion Gap 10 BUN 17 Creatinine 0.9 Estim Creat Clear Calc 97.5 eGFR > 60 BUN/Creatinine Ratio 19 Glucose 76 Calculated Osmolality 279 Calcium 8.5 Corrected Calcium 9.2 Total Bilirubin 0.4 AST 50 H ALT 41 Alkaline Phosphatase 86 Total Protein 6.7 Albumin 3.1 L Globulin 3.6 H Albumin/Globulin Ratio 0.9 L Assessment & Plan A&P Narrative osteo rt leg. previously treated with rocephin for 4 weeks approx in 2022. with option to extend noted. he is not a good historian as to his rx duration LLL nodule on imaging. pos cocci locally in 2022 and neg at [facility] at that time. hep c pos ok for trial of rocephin 2 gm iv daily for 6 week from admit (06/27-08/08) so from can add po doxy to that if desired, but rocephin should address the beta strep as well as any other germs found I changed the zosyn and iv doxy to iv rocepin and po doxy thru 08/08. I can see for hep c but he needs to be referred. 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 Time Spent With Patient Time: Total time spent is greater than 50% in coordination of care (as documented) at patient's floor/unit and/or counseling patient:
[2024-07-01] MEDS: ALBUTEROL/IPRATROPIUM (Duoneb) RT SOL 3 ML NEBU INH ×2 (11:05→21:50)
[2024-07-01] MEDS: cefTRIAXone/D5w 2gm 2 GM/50 ML BAG IV (11:34)
--- NOTE | 2024-07-01 14:15 | PD.RESPRO ---
Documentation for date of: 07/01/24 Subjective Subjective Interval history: No acute overnight events reported. Pt seen and examined at bedside. Patient states that his right leg pain has improved. Patient denies any chest pain, abdominal pain, nausea/vomiting, fevers, and shortness of breath. ID recommended patient to be on IV Rocephin 2 g daily for about 6 weeks and add p.o. Doxy for MRSA coverage. Patient is scheduled for PICC line, and pending dispo back to his facility. Patient can follow-up with ID for hep C treatment as an outpatient referral from PCP. Labs significant for slight increase in white count and decreasing hemoglobin. Otherwise no other complaints at this time. ROS negative at this time except as mentioned above. Exam Vital Signs Temp Pulse Resp BP Pulse Ox O2 Del Method O2 Flow Rate 97.1 F 74 18 135/83 H 95 Room Air 3 07/01/24 12:00 07/01/24 12:00 07/01/24 12:00 07/01/24 12:00 07/01/24 12:00 07/01/24 12:00 07/01/24 12:00 Narrative Exam General Appearance: Pt in mild acute distress laying in bed. Obese. HEENT: NC/AT, no scleral icterus, no conjunctival pallor, MMM Lungs: Clear to auscultation bilaterally, no rales, wheezing noted. CVS: RRR, S1/S2 heard, no murmurs or rubs appreciated ABD: Soft, non-tender, non-distended, BS + in all 4 quadrants EXT: Bilateral lower extremity 2+ pitting edema with bilateral stasis dermatitis. Right thigh blanching erythema has improved with multiple blisters burst. Right lower extremity bandaged with some drainage of serous fluid noted. SKIN: Skin exam normal without any rashes. Neuro: A&O x 3. No gross neurological deficits. Motor and sensory grossly intact in B/L UL and LL. Psych: Appropriate mood and affect Objective Labs 07/02/24 05:27 07/02/24 05:27 Labs: Laboratory Results - last 24 hr 07/01/24 04:32 WBC 14.2 H RBC 4.11 L Hgb 11.7 L Hct 35.9 L MCV 87 MCH 28.5 MCHC 32.6 RDW Std Deviation 42.8 Plt Count 198 D Neut % (Auto) 66 Lymph % (Auto) 13 [place] % (Auto) 10 Eos % (Auto) 2 Baso % (Auto) 1 Neut # (Auto) 9.3 H Lymph # (Auto) 1.8 [place] # (Auto) 1.4 H Eos # (Auto) 0.3 Baso # (Auto) 0.1 Immature Gran # (Auto) 1.42 H Absolute Nucleated RBC 0.00 Immature Gran % 10 H Nucleated RBC % 0 Smear Path Review Sent to Pathologist Sodium 140 Potassium 4.2 Chloride 107 Carbon Dioxide 22.9 Anion Gap 10 BUN 17 Creatinine 0.9 Estim Creat Clear Calc 97.5 eGFR > 60 BUN/Creatinine Ratio 19 Glucose 76 Calculated Osmolality 279 Calcium 8.5 Corrected Calcium 9.2 Total Bilirubin 0.4 AST 50 H ALT 41 Alkaline Phosphatase 86 Total Protein 6.7 Albumin 3.1 L Globulin 3.6 H Albumin/Globulin Ratio 0.9 L Quality Measures Quality Measures sepsis Current suspected stage: ruled out Possible source: skin/soft tissue and wound Blood cultures ordered: completed in ED Antibiotic ordered: Yes Advance care planning discussed with:: patient Assessment & Plan Assessment Current Active Medications: Generic Name Dose Route Start Last Admin Trade Name Freq PRN Reason Stop Dose Admin Acetaminophen 650 mg 06/28/24 05:10 Acetaminophen 325 Mg Tablet PO 07/27/24 23:09 Q6H PRN Fever >100 or pain 1-3 Albuterol/Ipratropium 3 ml 06/28/24 09:00 07/01/24 11:05 Albuterol/Ipratropium (Duoneb) Rt Alexus 3 Ml Nebu INH 07/28/24 08:59 3 ml BID SILVIA Administration Doxycycline Hyclate 100 mg 07/01/24 21:00 Doxycycline 100 Mg Tablet PO 08/08/24 12:00 BID SILVIA Gabapentin 300 mg 06/28/24 09:00 07/01/24 08:06 Gabapentin 300 Mg Capsule PO 07/28/24 08:59 300 mg BID SILVIA Administration Heparin Sodium (Porcine) 5,000 unit 06/28/24 09:00 07/01/24 08:05 Heparin Sod Inj 5000 Unit/Ml Vial SC 07/12/24 08:59 5,000 unit Q12H SILVIA Administration Ceftriaxone Sodium/Dextrose 2 gm in 50 mls @ 100 mls/hr 07/01/24 10:45 07/01/24 11:34 Rocephin/D5w 2gm IV 07/08/24 10:44 100 mls/hr QDAY SILVIA Administration Ketorolac Tromethamine 30 mg 06/29/24 14:35 07/01/24 01:01 Ketorolac Inj 30 Mg/Ml Vial IVP 07/04/24 14:34 30 mg Q6HR PRN Administration PAIN 4-10 Losartan Potassium 50 mg 06/29/24 14:45 07/01/24 08:04 Losartan Potassium 25 Mg Tablet PO 07/29/24 14:44 50 mg QDAY SILVIA Administration Melatonin 3 mg 06/27/24 23:20 06/30/24 20:42 Melatonin 3 Mg Tablet PO 07/27/24 23:19 3 mg HS SILVIA Administration Methadone HCl 100 mg 07/01/24 09:00 07/01/24 08:03 Methadone Hcl 10 Mg Tablet PO 07/06/24 08:59 100 mg QDAY SILVIA Administration Protocol Mupirocin 0 gm 06/29/24 15:44 07/01/24 05:06 Mupirocin Oint 2% 15 Gm Tube TOP 07/06/24 14:44 1 applicatio TID SILVIA Administration Nicotine 14 mg 06/29/24 15:45 07/01/24 08:06 Nicotine Patch 14 Mg/24 Hr Patch.Td24 TOP 07/29/24 15:44 14 mg QDAY SILVIA Administration Pantoprazole Sodium 20 mg 07/02/24 09:00 Pantoprazole 20 Mg Tablet PO 08/01/24 08:59 QDAY SILVIA Plan 68 y/o male with PMHx severe peripheral vascular disease with chronic venous insufficiency, essential hypertension, hepatitis C, BPH, GERD, previous knee effusions requiring aspirations, HFpEF (with grade 1 diastolic dysfunction) who is for acute hypoxic respiratory failure and sepsis. #Acute hypoxic respiratory failure, resolved #Sepsis, resolved #RLE cellulitis and osteomyelitis Tachycardic, white count 23, actate 2.3 -> 1.6 -> 1.3. Patient was given nitro paste in ambulance, likely culprit of why patient was hypotensive. Sepsis due to 2/4 SIRS criteria with acute sepsis-related organ dysfunction as evidence by DEV Given Sepsis Bolus: 2.9 L Spoke with general surgery, Dr. Baez, low suspicion for Jim's Zoysn and Doxycycline as there is low suspicion for Jim's CT showed osteomyelitis of patella, femur, tibia, and septic arthritis. 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 Orthopedics consulted, no acute intervention. MRSA screen positive, urine culture negative, blood culture negative -Consulted ID, IV Rocephin 2 g daily and p.o. Doxy for 6 weeks with end date 08/08/2024 -Tylenol for antipyretics -DuoNebs every 12 hours -Ketorolac 30 mg IV every 6 hours as needed for pain #Acute kidney injury, resolved #Lactic acidosis type B, resolved DDx: Prerenal versus ATN versus obstructive Has history of BPH and takes Flomax Creatinine of 2.5 -> 2.2 after fluids Creatinine clearance 39; GFR 32 Lactate 2.3 -> 1.6 -> 1.3 -Encourage oral hydration -Follow daily labs -Avoid nephrotoxic agents -Renally dose medicines -Santamaria #History of essential hypertension #Hx of HFpEF with grade 1 diastolic dysfunction Echo from 2022: The transthoracic study is normal by two-dimensional, color flow imaging and Doppler interrogation. Normal left ventricular size and function. Approximate ejection fraction is 60%. No wall motion abnormalities noted. Trace mitral and trace tricuspid regurgitation noted. Patient currently denies shortness of breath or chest pain. -Resume home meds: Losartan 50 mg p.o. daily #History of BPH Will hold on resuming Flomax -Santamaria #Chronic venous insufficiency #History of severe peripheral vascular disease Patient has gotten multiple procedures including aspiration for his condition Has been seen by orthopedic physicians Sees wound care once a week -As above -Wound care #History of substance abuse #History of hepatitis C Takes methadone 100 mg daily, dose is confirmed by pharmacy -Resume home meds: Methadone 100 mg p.o. daily -Will avoid other opioid medication -Recommend patient seek outpatient follow-up hepatitis C with ID referral from PCP Health maintenance DVT prophylaxis: Heparin q12h GI prophylaxis: Protonix Diet: Cardiac Lines: PIV CODE STATUS: Full Patient's plan and care discussed with my attending, Dr. Aleksandra Giron MD PGY-2 Attending Provider Attestation/Addendum I have examined the patient, reviewed labs and imaging findings, discussed the case with the resident(s), and reviewed entered orders. I agree with the plan of care as outlined in this note, with these additional summaries/recommendations: Patient seen at bedside. No acute overnight events. He reports improvement in right lower leg pain/rash although still significant with diffuse erythema a, swelling, and warmth to touch although improved from admission. Continue IV antibiotics and wound care. Blood cultures show no growth at [address] scan of right lower extremity shows diffuse edema and osteomyelitis of the lateral femoral condyle, posterior patella, medial tibial plateau with septic arthritis appearance. Orthopedics was consulted and agrees with current management. If symptoms worsen patient may require amputation. ESR 78 and CRP 22.2. Patient was seen by infectious disease who recommends extended course of IV abxs. Patient will go for PICC line today and case management working on arranging outpatient antibiotics. Patient was also noted to have acute kidney injury on admission which is now resolved. Creatinine now 0.8 and BUN 17. Continue to avoid nephrotoxic agents and renally dose medications. Patient updated on the plan and in agreement. Repeat hematology and chemistry panel in AM. Dr. Aleksandra MD
--- NOTE | 2024-07-01 15:15 | PC.SS ---
Rounding: Pending PICCLINE, pt will return to [facility] aware of IV ABX 2g Rocephin Qday
[2024-07-01] MEDS: MELATONIN 3 MG TABLET PO (20:20)
[2024-07-01] MEDS: DOXYCYCLINE 100 MG TABLET PO (20:20)
[2024-07-02] VITALS (8 sets, daily range): BP systolic 127–142; BP diastolic 70–97; PULSE 79–87; RESP 17–20; TEMP 36.2–36.5; O2SAT 95–100
[2024-07-02] MEDS: MUPIROCIN OINT 2% 15 GM TUBE TOP ×3 (05:18→21:39)
[2024-07-02 05:43] LABS: Basophils % (Auto) 0 % (0-2.5); Eosinophils # (Auto) 0.4 Thou/mm3 (0.0-0.5); Eosinophils % (Auto) 3 % (0-10); Hematocrit 39.8 % (41.0-53.0); Immature Granulocytes % (Auto) 16 % (0-0); Immature Granulocytes Auto 2.21 Thou/mm3 (0.00-0.00); Lymphocytes # (Auto) 1.7 Thou/mm3 (1.0-4.8); Lymphocytes % (Auto) 12 % (10-50); Mean Corpuscular HGB Conc 32.7 g/dl (31.0-37.0); Mean Corpuscular Hemoglobin 28.2 pg (25.0-35.0); Mean Corpuscular Volume 86 fL (80-100); Monocytes # (Auto) 1.2 Thou/mm3 (0.0-0.8); Monocytes % (Auto) 9 % (0-12); Neutrophils % (Auto) 59 % (37-80); Nucleated Red Blood Cell % 0 /100 WBC (0); Platelet Count 215 Thou/mm3 (140-440); Red Blood Count 4.61 Miln/mm3 (4.50-5.90); White Blood Count 13.5 Thou/mm3 (3.8-10.6)
[2024-07-02 06:11] LABS: Alanine Aminotransferase 45 U/L (10-49); Albumin, Serum 3.3 gm/dL (3.4-4.8); Albumin/Globulin Ratio 0.8 (1.2-2.2); Alkaline Phosphatase 99 U/L (46-116); Anion Gap 8 (7-16); Aspartate Amino Transferase 58 U/L (0-34); BUN/Creatinine Ratio 14 Ratio (12-20); Bilirubin,Total 0.5 mg/dL (0.3-1.2); Blood Urea Nitrogen 11 mg/dL (9-23); Calcium 8.8 mg/dL (8.3-10.6); Calcium (Corrected) 9.4 mg/dL (8.5-10.1); Carbon Dioxide 22.7 mMol/L (20.0-31.0); Chloride 107 mMol/L (98-107); Creatinine (Component) 0.8 mg/dL (0.6-1.3); Estimated Creatinine Clearance 109.7 mL/min (>60); Globulin 4.1 gm/dL (2.3-3.5); Glucose 85 mg/dL (74-106); Osmolality,Calculated 274 (275-295); Potassium 4.4 mMol/L (3.4-5.1); Sodium 138 mMol/L (136-145); Total Protein 7.4 gm/dL (5.7-8.2); eGFR > 60 See Note
[2024-07-02] MEDS: ALBUTEROL/IPRATROPIUM (Duoneb) RT SOL 3 ML NEBU INH (07:25)
[2024-07-02] MEDS: METHADONE HCL 10 MG TABLET 100 MG PO (08:33)
[2024-07-02] MEDS: GABAPENTIN 300 MG CAPSULE PO ×2 (08:33→20:44)
[2024-07-02] MEDS: DOXYCYCLINE 100 MG TABLET PO ×2 (08:34→20:44)
[2024-07-02] MEDS: LOSARTAN POTASSIUM 25 MG TABLET 50 MG PO (08:34)
[2024-07-02] MEDS: PANTOPRAZOLE 20 MG TABLET PO (08:34)
[2024-07-02] MEDS: NICOTINE PATCH 14 MG/24 HR PATCH.TD24 TOP (08:37)
[2024-07-02] MEDS: cefTRIAXone/D5w 2gm 2 GM/50 ML BAG IV (08:37)
[2024-07-02] MEDS: HEPARIN SOD INJ 5000 UNIT/ML VIAL SC ×2 (08:38→20:44)
--- NOTE | 2024-07-02 14:29 | PD.RESPRO ---
Documentation for date of: 07/02/24 Subjective Subjective Interval history: No acute overnight events reported. Pt seen and examined at bedside. Pt states that his right leg pain is improving. Patient continues to have lower right leg bandaged but no serous fluid drainage noted. Patient will have PICC line scheduled for Thursday, and anticipate discharge shortly after PICC line placement. Patient will go back to his facility with IV Rocephin 2 g daily and p.o. doxycycline to 08/08/2024. Encourage patient to use his daily spirometer and ambulate his lower extremities in his bed. Will order labs for Thursday prior to discharge. Exam Vital Signs Temp Pulse Resp BP Pulse Ox O2 Del Method O2 Flow Rate 97.6 F 79 17 135/93 H 95 Room Air 3 07/02/24 12:00 07/02/24 12:07/02/24 12:07/02/24 12:07/02/24 12:07/02/24 12:07/02/24 04:00 Narrative Exam General Appearance: Pt in mild acute distress laying in bed. Obese. HEENT: NC/AT, no scleral icterus, no conjunctival pallor, MMM Lungs: Clear to auscultation bilaterally, no rales, wheezing noted. CVS: RRR, S1/S2 heard, no murmurs or rubs appreciated ABD: Soft, non-tender, non-distended, BS + in all 4 quadrants EXT: Bilateral lower extremity 2+ pitting edema with bilateral stasis dermatitis. Right thigh blanching erythema has improved with multiple blisters burst. Right lower extremity bandaged with some drainage of serous fluid noted. SKIN: Skin exam normal without any rashes. Neuro: A&O x 3. No gross neurological deficits. Motor and sensory grossly intact in B/L UL and LL. Psych: Appropriate mood and affect Objective Labs 07/02/24 05:27 07/02/24 05:27 Labs: Laboratory Results - last 24 hr 07/02/24 05:27 WBC 13.5 H RBC 4.61 Hgb 13.0 L Hct 39.8 L MCV 86 MCH 28.2 MCHC 32.7 RDW Std Deviation 41.0 Plt Count 215 Neut % (Auto) 59 Lymph % (Auto) 12 [place] % (Auto) 9 Eos % (Auto) 3 Baso % (Auto) 0 Neut # (Auto) 8.0 H Lymph # (Auto) 1.7 [place] # (Auto) 1.2 H Eos # (Auto) 0.4 Baso # (Auto) 0.0 Immature Gran # (Auto) 2.21 H Absolute Nucleated RBC 0.00 Immature Gran % 16 H Nucleated RBC % 0 Sodium 138 Potassium 4.4 Chloride 107 Carbon Dioxide 22.7 Anion Gap 8 BUN 11 Creatinine 0.8 Estim Creat Clear Calc 109.7 eGFR > 60 BUN/Creatinine Ratio 14 Glucose 85 Calculated Osmolality 274 L Calcium 8.8 Corrected Calcium 9.4 Total Bilirubin 0.5 AST 58 H ALT 45 Alkaline Phosphatase 99 Total Protein 7.4 Albumin 3.3 L Globulin 4.1 H Albumin/Globulin Ratio 0.8 L Quality Measures Quality Measures sepsis Current suspected stage: ruled out Possible source: skin/soft tissue and wound Blood cultures ordered: completed in ED Antibiotic ordered: Yes Advance care planning discussed with:: patient Assessment & Plan Assessment Current Active Medications: Generic Name Dose Route Start Last Admin Trade Name Freq PRN Reason Stop Dose Admin Acetaminophen 650 mg 06/28/24 05:10 Acetaminophen 325 Mg Tablet PO 07/27/24 23:09 Q6H PRN Fever >100 or pain 1-3 Albuterol/Ipratropium 3 ml 06/28/24 09:00 07/02/24 07:25 Albuterol/Ipratropium (Duoneb) Rt Alexus 3 Ml Nebu INH 07/28/24 08:59 3 ml BID SILVIA Administration Doxycycline Hyclate 100 mg 07/01/24 21:00 07/02/24 08:34 Doxycycline 100 Mg Tablet PO 08/08/24 12:00 100 mg BID SILVIA Administration Gabapentin 300 mg 06/28/24 09:00 07/02/24 08:33 Gabapentin 300 Mg Capsule PO 07/28/24 08:59 300 mg BID SILVIA Administration Heparin Sodium (Porcine) 5,000 unit 06/28/24 09:00 07/02/24 08:38 Heparin Sod Inj 5000 Unit/Ml Vial SC 07/12/24 08:59 5,000 unit Q12H SILVIA Administration Ceftriaxone Sodium/Dextrose 2 gm in 50 mls @ 100 mls/hr 07/01/24 10:45 07/02/24 08:37 Rocephin/D5w 2gm IV 07/08/24 10:44 100 mls/hr QDAY SILVIA Administration Ketorolac Tromethamine 30 mg 06/29/24 14:35 07/01/24 01:01 Ketorolac Inj 30 Mg/Ml Vial IVP 07/04/24 14:34 30 mg Q6HR PRN Administration PAIN 4-10 Losartan Potassium 50 mg 06/29/24 14:45 07/02/24 08:34 Losartan Potassium 25 Mg Tablet PO 07/29/24 14:44 50 mg QDAY SILVIA Administration Melatonin 3 mg 06/27/24 23:20 07/01/24 20:20 Melatonin 3 Mg Tablet PO 07/27/24 23:19 3 mg HS SILVIA Administration Methadone HCl 100 mg 07/01/24 09:00 07/02/24 08:33 Methadone Hcl 10 Mg Tablet PO 07/06/24 08:59 100 mg QDAY SILVIA Administration Protocol Mupirocin 0 gm 06/29/24 15:44 07/02/24 05:18 Mupirocin Oint 2% 15 Gm Tube TOP 07/06/24 14:44 1 applicatio TID SILVIA Administration Nicotine 14 mg 06/29/24 15:45 07/02/24 08:37 Nicotine Patch 14 Mg/24 Hr Patch.Td24 TOP 07/29/24 15:44 14 mg QDAY SILVIA Administration Pantoprazole Sodium 20 mg 07/02/24 09:00 07/02/24 08:34 Pantoprazole 20 Mg Tablet PO 08/01/24 08:59 20 mg QDAY SILVIA Administration Plan 68 y/o male with PMHx severe peripheral vascular disease with chronic venous insufficiency, essential hypertension, hepatitis C, BPH, GERD, previous knee effusions requiring aspirations, HFpEF (with grade 1 diastolic dysfunction) who is for acute hypoxic respiratory failure and sepsis. #Acute hypoxic respiratory failure, resolved #Sepsis, resolved #RLE cellulitis and osteomyelitis Tachycardic, white count 23, actate 2.3 -> 1.6 -> 1.3. Patient was given nitro paste in ambulance, likely culprit of why patient was hypotensive. Sepsis due to 2/4 SIRS criteria with acute sepsis-related organ dysfunction as evidence by DEV Given Sepsis Bolus: 2.9 L Spoke with general surgery, Dr. Baez, low suspicion for Jim's Zoysn and Doxycycline as there is low suspicion for Jim's CT showed osteomyelitis of patella, femur, tibia, and septic arthritis. 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 Orthopedics consulted, no acute intervention. MRSA screen positive, urine culture negative, blood culture negative -Consulted ID, IV Rocephin 2 g daily and p.o. Doxy for 6 weeks with end date 08/08/2024 -Tylenol for antipyretics -DuoNebs every 12 hours -Ketorolac 30 mg IV every 6 hours as needed for pain #Acute kidney injury, resolved #Lactic acidosis type B, resolved DDx: Prerenal versus ATN versus obstructive Has history of BPH and takes Flomax Creatinine of 2.5 -> 2.2 after fluids Creatinine clearance 39; GFR 32 Lactate 2.3 -> 1.6 -> 1.3 -Encourage oral hydration -Avoid nephrotoxic agents -Renally dose medicines -Santamaria #History of essential hypertension #Hx of HFpEF with grade 1 diastolic dysfunction Echo from 2022: The transthoracic study is normal by two-dimensional, color flow imaging and Doppler interrogation. Normal left ventricular size and function. Approximate ejection fraction is 60%. No wall motion abnormalities noted. Trace mitral and trace tricuspid regurgitation noted. Patient currently denies shortness of breath or chest pain. -Resume home meds: Losartan 50 mg p.o. daily #History of BPH Will hold on resuming Flomax #Chronic venous insufficiency #History of severe peripheral vascular disease Patient has gotten multiple procedures including aspiration for his condition Has been seen by orthopedic physicians Sees wound care once a week -As above -Wound care #History of substance abuse #History of hepatitis C Takes methadone 100 mg daily, dose is confirmed by pharmacy -Resume home meds: Methadone 100 mg p.o. daily -Will avoid other opioid medication -Recommend patient seek outpatient follow-up hepatitis C with ID referral from PCP Health maintenance DVT prophylaxis: Heparin q12h GI prophylaxis: Protonix Diet: Cardiac Lines: PIV CODE STATUS: Full Patient's plan and care discussed with my attending, Dr. Aleksandra Giron MD PGY-2 Attending Provider Attestation/Addendum I have examined the patient, reviewed labs and imaging findings, discussed the case with the resident(s), and reviewed entered orders. I agree with the plan of care as outlined in this note, with these additional summaries/recommendations: Patient seen at bedside. No acute overnight events. Patient reports his pain is currently controlled and endorses improvement in right lower extremity cellulitis. Continue IV antibiotics and wound care. Blood cultures show no growth at [address] scan of right lower extremity shows diffuse edema and osteomyelitis of the lateral femoral condyle, posterior patella, medial tibial plateau with septic arthritis appearance. Orthopedics was consulted and agrees with current management. If symptoms worsen patient may require amputation. ESR 78 and CRP 22.2. Patient was seen by infectious disease who recommends extended course of IV abxs. Patient will go for PICC line on Tuesday 07/04 and case management working on arranging outpatient antibiotics. Patient was also noted to have acute kidney injury on admission which is now resolved. Creatinine now 0.8 and BUN 17. Continue to avoid nephrotoxic agents and renally dose medications. Patient updated on the plan and in agreement. Repeat hematology and chemistry panel in AM. Dr. Aleksandra MD
[2024-07-02] MEDS: KETOROLAC INJ 30 MG/ML VIAL IVP (19:07)
--- NOTE | 2024-07-02 19:56 | PC.NURSE ---
Patient had a chief complaint of pain. Pain medication Torodal was given for patient's pain. Patient requested if he could have tramadol instead of torodal. Contacted hospitalist Dr. Abdul regarding patient's request. Per Dr. Abdul, he will review the patient's chart.
[2024-07-02] MEDS: MELATONIN 3 MG TABLET PO (20:44)
[2024-07-03] VITALS (9 sets, daily range): BP systolic 122–148; BP diastolic 75–86; PULSE 70–89; RESP 17–20; TEMP 36.2–36.6; O2SAT 93–96
[2024-07-03] MEDS: MUPIROCIN OINT 2% 15 GM TUBE TOP ×2 (05:15→21:56)
[2024-07-03] MEDS: KETOROLAC INJ 30 MG/ML VIAL IVP (05:21)
--- NOTE | 2024-07-03 07:08 | PD.RESPRO ---
Documentation for date of: 07/03/24 Subjective Subjective Interval history: No overnight acute events This morning patient complained of mild itchiness on the right lower extremity as well as mild pain 6/10 denied chest pain, palpitations, fever, chills or any other associated symptom at this moment. Pending PICC line insertion tomorrow. Case management is informed about the case and if patient remains stable in the next 24 to 48 hours will be discharged back to SNF. Exam Vital Signs Temp Pulse Resp BP Pulse Ox O2 Del Method O2 Flow Rate 97.7 F 71 20 135/78 H 94 L Room Air 3 07/03/24 04:00 07/03/24 04:00 07/03/24 04:00 07/03/24 04:00 07/03/24 04:00 07/03/24 04:00 07/02/24 04:00 Narrative Exam General Appearance: Not in acute, obese. HEENT: NC/AT, no scleral icterus, no conjunctival pallor, MMM Lungs: Clear to auscultation bilaterally, no rales. CVS: RRR, S1/S2 heard, no murmurs or rubs appreciated ABD: Soft, non-tender, non-distended, BS + in all 4 quadrants EXT: Bilateral lower extremity 2+ pitting edema with bilateral stasis dermatitis. Deroofed blister on medial right thigh, extremity bandaged with some drainage of serous fluid noted. SKIN: No jaundice, multiple tattoos on upper extremities and chest Neuro: AOx4. No gross neurological deficits. Motor and sensory grossly intact in B/L UL and LL. Psych: Appropriate mood and affect Objective Labs 07/02/24 05:27 07/02/24 05:27 Quality Measures Quality Measures sepsis Current suspected stage: sepsis (resolved) Possible source: skin/soft tissue and wound Blood cultures ordered: completed in ED Antibiotic ordered: Yes Advance care planning discussed with:: patient Assessment & Plan Assessment Current Active Medications: Generic Name Dose Route Start Last Admin Trade Name Freq PRN Reason Stop Dose Admin Acetaminophen 650 mg 06/28/24 05:10 Acetaminophen 325 Mg Tablet PO 07/27/24 23:09 Q6H PRN Fever >100 or pain 1-3 Albuterol/Ipratropium 3 ml 06/28/24 09:00 07/03/24 03:27 Albuterol/Ipratropium (Duoneb) Rt Alexus 3 Ml Nebu INH 07/28/24 08:59 Not Given BID SILVIA Doxycycline Hyclate 100 mg 07/01/24 21:00 07/02/24 20:44 Doxycycline 100 Mg Tablet PO 08/08/24 12:00 100 mg BID SILVIA Administration Gabapentin 300 mg 06/28/24 09:00 07/02/24 20:44 Gabapentin 300 Mg Capsule PO 07/28/24 08:59 300 mg BID SILVIA Administration Heparin Sodium (Porcine) 5,000 unit 06/28/24 09:00 07/02/24 20:44 Heparin Sod Inj 5000 Unit/Ml Vial SC 07/12/24 08:59 5,000 unit Q12H SILVIA Administration Ceftriaxone Sodium/Dextrose 2 gm in 50 mls @ 100 mls/hr 07/01/24 10:45 07/02/24 08:37 Rocephin/D5w 2gm IV 07/08/24 10:44 100 mls/hr QDAY SILVIA Administration Ketorolac Tromethamine 30 mg 06/29/24 14:35 07/03/24 05:21 Ketorolac Inj 30 Mg/Ml Vial IVP 07/04/24 14:34 30 mg Q6HR PRN Administration PAIN 4-10 Losartan Potassium 50 mg 06/29/24 14:45 07/02/24 08:34 Losartan Potassium 25 Mg Tablet PO 07/29/24 14:44 50 mg QDAY SILVIA Administration Melatonin 3 mg 06/27/24 23:20 07/02/24 20:44 Melatonin 3 Mg Tablet PO 07/27/24 23:19 3 mg HS SILVIA Administration Methadone HCl 100 mg 07/01/24 09:00 07/02/24 08:33 Methadone Hcl 10 Mg Tablet PO 07/06/24 08:59 100 mg QDAY SILVIA Administration Protocol Mupirocin 0 gm 06/29/24 15:44 07/03/24 05:15 Mupirocin Oint 2% 15 Gm Tube TOP 07/06/24 14:44 1 applicatio TID SILVIA Administration Nicotine 14 mg 06/29/24 15:45 07/02/24 08:37 Nicotine Patch 14 Mg/24 Hr Patch.Td24 TOP 07/29/24 15:44 14 mg QDAY SILVIA Administration Pantoprazole Sodium 20 mg 07/02/24 09:00 07/02/24 08:34 Pantoprazole 20 Mg Tablet PO 08/01/24 08:59 20 mg QDAY SILVIA Administration Plan 68 y/o male with PMHx severe peripheral vascular disease with chronic venous insufficiency, essential hypertension, hepatitis C, BPH, GERD, previous knee effusions requiring aspirations, HFpEF (with grade 1 diastolic dysfunction) who is for acute hypoxic respiratory failure and sepsis. #Acute hypoxic respiratory failure, resolved #Sepsis, resolved #RLE cellulitis and osteomyelitis Tachycardic, white count 23, actate 2.3 -> 1.6 -> 1.3. Patient was given nitro paste in ambulance, likely culprit of why patient was hypotensive. Sepsis due to 2/4 SIRS criteria with acute sepsis-related organ dysfunction as evidence by DEV Given Sepsis Bolus: 2.9 L Spoke with general surgery, Dr. Baez, low suspicion for Jim's Zoysn and Doxycycline as there is low suspicion for Jim's CT showed osteomyelitis of patella, femur, tibia, and septic arthritis. 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 Orthopedics consulted, no acute intervention. MRSA screen positive, urine culture negative, blood culture negative -Consulted ID, IV Rocephin 2 g daily and p.o. Doxy for 6 weeks with end date 08/08/2024 -Tylenol for antipyretics -DuoNebs every 12 hours -Ketorolac 30 mg IV every 6 hours as needed for pain #Acute kidney injury, resolved #Lactic acidosis type B, resolved DDx: Prerenal versus ATN versus obstructive Has history of BPH and takes Flomax Creatinine of 2.5 -> 2.2 after fluids Creatinine clearance 39; GFR 32 Lactate 2.3 -> 1.6 -> 1.3 -Encourage oral hydration -Avoid nephrotoxic agents -Renally dose medicines -Santamaria #History of essential hypertension #Hx of HFpEF with grade 1 diastolic dysfunction Echo from 2022: The transthoracic study is normal by two-dimensional, color flow imaging and Doppler interrogation. Normal left ventricular size and function. Approximate ejection fraction is 60%. No wall motion abnormalities noted. Trace mitral and trace tricuspid regurgitation noted. Patient currently denies shortness of breath or chest pain. -Resume home meds: Losartan 50 mg p.o. daily #History of BPH Will hold on resuming Flomax #Chronic venous insufficiency #History of severe peripheral vascular disease Patient has gotten multiple procedures including aspiration for his condition Has been seen by orthopedic physicians Sees wound care once a week -As above -Wound care #History of substance abuse #History of hepatitis C Takes methadone 100 mg daily, dose is confirmed by pharmacy -Resume home meds: Methadone 100 mg p.o. daily -Will avoid other opioid medication -Recommend patient seek outpatient follow-up hepatitis C with ID referral from PCP Health maintenance DVT prophylaxis: Heparin q12h GI prophylaxis: Protonix Diet: Cardiac Lines: PIV CODE STATUS: Full Patient discussed with my attending Dr Aleksandra Smith MD PGY-3 Disclaimer: Despite multiple revisions, due to the dictation software being used, the document bellow may not be free of grammatical errors including phonetic/typographic errors. However, this does not deter from our commitment to providing health care in the patient's best interest in mind. Attending Provider Attestation/Addendum I have examined the patient, reviewed labs and imaging findings, discussed the case with the resident(s), and reviewed entered orders. I agree with the plan of care as outlined in this note, with these additional summaries/recommendations: Patient seen at bedside. No acute overnight events. Patient reports his pain is currently controlled and endorses improvement in right lower extremity cellulitis. Continue IV antibiotics and wound care. Blood cultures show no growth at [address] scan of right lower extremity shows diffuse edema and osteomyelitis of the lateral femoral condyle, posterior patella, medial tibial plateau with septic arthritis appearance. Orthopedics was consulted and agrees with current management. If symptoms worsen patient may require amputation. ESR 78 and CRP 22.2. Patient was seen by infectious disease who recommends extended course of IV abxs. Patient will go for PICC line on Thursday07/04/24 and case management working on arranging outpatient antibiotics. Patient was also noted to have acute kidney injury on admission which is now resolved. Creatinine now 0.8 and BUN 17. Continue to avoid nephrotoxic agents and renally dose medications. Patient updated on the plan and in agreement. Repeat hematology and chemistry panel in AM. Dr. Aleksandra MD
[2024-07-03] MEDS: DOXYCYCLINE 100 MG TABLET PO ×2 (09:00→21:56)
[2024-07-03] MEDS: ALBUTEROL/IPRATROPIUM (Duoneb) RT SOL 3 ML NEBU INH ×2 (09:07→21:59)
[2024-07-03] MEDS: NICOTINE PATCH 14 MG/24 HR PATCH.TD24 TOP (09:50)
[2024-07-03] MEDS: GABAPENTIN 300 MG CAPSULE PO ×2 (09:55→21:56)
[2024-07-03] MEDS: cefTRIAXone/D5w 2gm 2 GM/50 ML BAG IV (09:55)
[2024-07-03] MEDS: PANTOPRAZOLE 20 MG TABLET PO (09:55)
[2024-07-03] MEDS: HEPARIN SOD INJ 5000 UNIT/ML VIAL SC ×2 (09:55→21:56)
[2024-07-03] MEDS: LOSARTAN POTASSIUM 25 MG TABLET 50 MG PO (09:55)
[2024-07-03] MEDS: METHADONE HCL 10 MG TABLET 100 MG PO (10:04)
[2024-07-03] MEDS: DiphenhydrAMINE 25 MG CAPSULE PO (11:20)
[2024-07-03] MEDS: MELATONIN 3 MG TABLET PO (21:56)
[2024-07-03 22:07] LABS: HCV RNA, PCR 2220000 IU/mL
[2024-07-04] VITALS (9 sets, daily range): BP systolic 112–142; BP diastolic 70–83; PULSE 74–96; RESP 17–19; TEMP 36.1–36.4; O2SAT 94–98
--- NOTE | 2024-07-04 | XR_ITS ---
Examination: Ultrasound-guided needle placement right brachial vein. Dual-lumen central line placement (PICC line). Fluoroscopy AP chest, portable, single view Exam date and time:July 04, 2024 at 1158 hours INDICATIONS: Need for long-term intravenous antibiotic therapy for right leg osteomyelitis A timeout was completed verifying correct patient, procedure, site, positioning Informed consent provided Technique: The patient's site was prepped and draped in sterile fashion. Maximum Sterile Barrier Technique used including cap, mask, sterile gown, sterile gloves, and sterile full body drape. If ultrasound technique used: sterile gel and sterile probe covers. Hand Hygiene performed using proper scrub, soap and water, or alcohol-based hand rub. Site right portable ultrasound apparatus utilized to confirm patency of the right brachial vein Utilizing ultrasonographic guidance successful 21-gauge needle puncture into the right brachial vein. Ultrasound images recorded and stored. 5 cc 1% lidocaine administered for local anesthetic. Successful micropuncture with a 21-gauge needle is performed. 0.18 wire guide is then introduced into the SVC under fluoroscopic guidance. Dual-lumen catheter dilator is then introduced, followed by the catheter in the SVC and proper position under fluoroscopic guidance. Successful aspiration of blood and flushing with heparinized saline is then performed in the 2 venous limbs. The catheter sutured in place. Findings: Under fluoroscopy, the tip of the catheter is in good position in the vena cava. Portable chest x-ray, post line placement is ordered. Estimated blood loss 3 cc The patient tolerated the procedure well and was in stable and satisfactory condition at completion of the procedure Impression: Successful ultrasound-guided needle placement right brachial vein Successful placement of dual lumen central line, percutaneous Fluoroscopy 0.1 minute radiation dose 1.30 milligray 1 spot fluoroscopic chest film. AP chest completion procedure demonstrates satisfactory position central line. May use central line.
[2024-07-04] MEDS: MUPIROCIN OINT 2% 15 GM TUBE TOP ×2 (05:02→14:59)
[2024-07-04 06:14] LABS: Basophils # (Auto) 0.1 Thou/mm3 (0.0-0.2); Basophils % (Auto) 1 % (0-2.5); Eosinophils # (Auto) 0.5 Thou/mm3 (0.0-0.5); Eosinophils % (Auto) 4 % (0-10); Hematocrit 38.1 % (41.0-53.0); Hemoglobin 12.6 g/dL (13.5-16.0); Immature Granulocytes % (Auto) 8 % (0-0); Lymphocytes # (Auto) 1.5 Thou/mm3 (1.0-4.8); Lymphocytes % (Auto) 10 % (10-50); Mean Corpuscular HGB Conc 33.1 g/dl (31.0-37.0); Mean Corpuscular Hemoglobin 28.9 pg (25.0-35.0); Mean Corpuscular Volume 87 fL (80-100); Monocytes # (Auto) 0.9 Thou/mm3 (0.0-0.8); Monocytes % (Auto) 6 % (0-12); Neutrophils # (Auto) 10.8 Thou/mm3 (1.8-7.7); Neutrophils % (Auto) 72 % (37-80); Nucleated Red Blood Cell % 0 /100 WBC (0); Platelet Count 238 Thou/mm3 (140-440); RDW Standard Deviation 41.7 fL (35.1-43.9); Red Blood Count 4.36 Miln/mm3 (4.50-5.90)
[2024-07-04 06:36] LABS: Alanine Aminotransferase 33 U/L (10-49); Albumin/Globulin Ratio 0.7 (1.2-2.2); Alkaline Phosphatase 86 U/L (46-116); Anion Gap 7 (7-16); Aspartate Amino Transferase 33 U/L (0-34); BUN/Creatinine Ratio 20 Ratio (12-20); Bilirubin,Total 0.3 mg/dL (0.3-1.2); Blood Urea Nitrogen 16 mg/dL (9-23); Calcium 8.7 mg/dL (8.3-10.6); Calcium (Corrected) 9.5 mg/dL (8.5-10.1); Carbon Dioxide 23.8 mMol/L (20.0-31.0); Chloride 106 mMol/L (98-107); Creatinine (Component) 0.8 mg/dL (0.6-1.3); Estimated Creatinine Clearance 109.7 mL/min (>60); Globulin 4.5 gm/dL (2.3-3.5); Glucose 102 mg/dL (74-106); Osmolality,Calculated 275 (275-295); Potassium 4.5 mMol/L (3.4-5.1); Sodium 137 mMol/L (136-145); Total Protein 7.5 gm/dL (5.7-8.2); eGFR > 60 See Note
[2024-07-04 07:01] LABS: HCV RNA, PCR Log IU 6.35 Log IU/mL
[2024-07-04] MEDS: ALBUTEROL/IPRATROPIUM (Duoneb) RT SOL 3 ML NEBU INH (08:11)
[2024-07-04] MEDS: cefTRIAXone/D5w 2gm 2 GM/50 ML BAG IV (09:21)
[2024-07-04] MEDS: LOSARTAN POTASSIUM 25 MG TABLET 50 MG PO (09:21)
[2024-07-04] MEDS: DOXYCYCLINE 100 MG TABLET PO ×2 (09:22→21:02)
[2024-07-04] MEDS: METHADONE HCL 10 MG TABLET 100 MG PO (09:22)
[2024-07-04] MEDS: GABAPENTIN 300 MG CAPSULE PO ×2 (09:22→21:02)
[2024-07-04] MEDS: PANTOPRAZOLE 20 MG TABLET PO (09:22)
[2024-07-04] MEDS: HEPARIN SOD INJ 5000 UNIT/ML VIAL SC ×2 (09:22→21:06)
--- NOTE | 2024-07-04 09:22 | PD.IDPROG ---
Subjective Subjective Interval history: no change in recs. hep c rx never started in hospital as it is costly so meds are not formulary at any hospital worldwide. Exam Vital Signs Temp Pulse Resp BP Pulse Ox O2 Del Method O2 Flow Rate 97.5 F 94 18 142/78 H 94 L Room Air 3 07/04/24 08:00 07/04/24 08:11 07/04/24 08:11 07/04/24 08:00 07/04/24 08:11 07/04/24 08:00 07/02/24 04:00 Narrative Exam limited eval Objective - Internal Medicine Labs 07/04/24 05:18 07/04/24 05:18 Labs: Laboratory Results - last 24 hr 07/01/24 07/04/24 12:18 05:18 WBC 15.0 H RBC 4.36 L Hgb 12.6 L Hct 38.1 L MCV 87 MCH 28.9 MCHC 33.1 RDW Std Deviation 41.7 Plt Count 238 Neut % (Auto) 72 Lymph % (Auto) 10 [place] % (Auto) 6 Eos % (Auto) 4 Baso % (Auto) 1 Neut # (Auto) 10.8 H Lymph # (Auto) 1.5 [place] # (Auto) 0.9 H Eos # (Auto) 0.5 Baso # (Auto) 0.1 Immature Gran # (Auto) 1.20 H Absolute Nucleated RBC 0.00 Immature Gran % 8 H Nucleated RBC % 0 Sodium 137 Potassium 4.5 Chloride 106 Carbon Dioxide 23.8 Anion Gap 7 BUN 16 Creatinine 0.8 Estim Creat Clear Calc 109.7 eGFR > 60 BUN/Creatinine Ratio 20 Glucose 102 Calculated Osmolality 275 Calcium 8.7 Corrected Calcium 9.5 Magnesium 2.0 Total Bilirubin 0.3 AST 33 ALT 33 Alkaline Phosphatase 86 Total Protein 7.5 Albumin 3.0 L Globulin 4.5 H Albumin/Globulin Ratio 0.7 L HCV RNA Quant (PCR) [id number] H HCV RNA (PCR) IU log10 6.35 H Assessment & Plan A&P Narrative osteo rt leg. previously treated with rocephin for 4 weeks approx in 2022. with option to extend noted. he is not a good historian as to his rx duration LLL nodule on imaging. pos cocci locally in 2022 and neg at [facility] at that time. hep c pos, f1-f2 fibrosis and no rx so far ok for trial of rocephin 2 gm iv daily for 6 week from admit (06/27-08/08) so from can add po doxy to that if desired, but rocephin should address the beta strep as well as any other germs found I changed the zosyn and iv doxy to iv rocepin and po doxy thru 08/08. I can see for hep c but he needs to be referred. 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 rx for hep c not started in hospital as noted. will see again prn. Time Spent With Patient Time: Total time spent is greater than 50% in coordination of care (as documented) at patient's floor/unit and/or counseling patient:
[2024-07-04] MEDS: NICOTINE PATCH 14 MG/24 HR PATCH.TD24 TOP (09:23)
[2024-07-04 12:08] LABS: INR 1.1 (0.9-1.3); Partial Thromboplastin Time 29.1 Seconds (22.0-36.0); Prothrombin Time 11.6 Seconds (9.0-12.2)
[2024-07-04] MEDS: HEPARIN SOD LOCK SYR 100 UNIT/ML 500 UNIT STFIELD (12:15)
[2024-07-04] MEDS: LIDOCAINE INJ PF 1% 5 ML VIAL 8 ML INFL (12:42)
--- NOTE | 2024-07-04 13:11 | ESDS_ITS ---
<Statement entered by Lisa Giron MD - 07/04/24 15:14> I discussed with and supervised the staff internist office based only physician who took care of this patient. I personally saw and examined the patient and discussed the assessment and plan with the entire medicine team, including my attending Dr. Lake, I agree with most of the assessment and plan as documented below Lisa Giron M.D. PGY-2 <Statement entered by Valerie Smith MD - 07/04/24 15:14> I discussed with and supervised the staff internist office based only physician who took care of this patient. I personally saw and examined the patient and discussed the assessment and plan with the entire medicine team, including my attending Dr. Lake, I agree with the assessment and plan as documented below Patient seen and examined at bedside today. Labs and imaging reviewed. Patient will need to receive IV Rocephin 2g daily via PICC line and Doxycycline 100mg twice daily until day 08/08/24 Please continue all other home medications as prescribed. Please see your PCP within 1-2 weeks, and have a referral to see an ID and Orthopedist outpatient. Valerie Smith MD PGY-3 Disclaimer: Despite multiple revisions, due to the dictation software being used, the document bellow may not be free of grammatical errors including phonetic/typographic errors. However, this does not deter from our commitment to providing health care in the patient's best interest in mind. Planned Discharge Date 07/04/24 DS: Providers Provider Date of admission: 06/27/24 23:10 Primary care physician: Michael Hayes MD Admitting Provider: Mihir Avalos MD Attending Provider on Admission: Fermin Lake MD Consults: 06/27/24 23:24 Referral Wound Care Routine Comment: 06/27/24 23:25 Consult to General Surgery Routine Comment: Consulting Provider: Yohana Baez 06/29/24 08:22 Consult to Orthopedic Urgent Comment: Consulting Provider: Bj Luevano 06/29/24 13:19 Consult to Infectious Diseases Routine Comment: Consulting Provider: Grabiel Harrell Attending Provider on DC: Fermin Lake MD Discharging Provider: Miguel Reynolds MD DS: Diagnosis Problem List Completed Was Problem List Reviewed/Reconciled?: Yes Hospital Course Hospital Course Hospital course: 68 y/o male with PMHx severe peripheral vascular disease with chronic venous insufficiency, essential hypertension, hepatitis C, BPH, GERD, previous knee effusions requiring aspirations, HFpEF (with grade 1 diastolic dysfunction) brought in by ambulance from [facility] on 06/27/2024 for an evaluation of right lower extremity pain and redness extending up to the mid thigh with associated fever and chills. Patient treated for right lower extremity cellulitis with sepsis,, chronic osteomyelitis. Patient treated with IV antibiotics and wound care, with steady improvement in subjective symptoms and appearance of leg. Infectious disease consulted, recommended PICC line for 6 weeks of IV antibiotics, placed without incident. Patient medically stable and cleared for discharge. Discharge plan: Patient will need to receive IV Rocephin 2g daily via PICC line and oral D oxycycline 100mg twice daily until day 08/08/24 Please continue all other home medications as prescribed. Please see your PCP within 1-2 weeks, and have a referral to see an ID and Orthopedist outpatient. Diagnoses: #Acute hypoxic respiratory failure, resolved #Sepsis, resolved #RLE cellulitis and osteomyelitis #Acute kidney injury, resolved #Lactic acidosis type B, resolved #History of essential hypertension #Hx of HFpEF with grade 1 diastolic dysfunction #History of BPH #Chronic venous insufficiency #History of severe peripheral vascular disease #History of substance abuse #History of hepatitis C Plan of care discussed with senior resident Dr. Giron PGY?[address] Smith PGY?3, and attending Dr. Lake. Miguel Reynolds MD PGY?1 Status at Discharge Overall status at discharge: patient is back to baseline Time Spent with Patient Time attestation: Total time spent providing and/or coordinating discharge services: Time spent: Greater than 30 minutes Exam Vital Signs Temp Pulse Resp BP Pulse Ox O2 Del Method O2 Flow Rate 97.2 F 79 17 130/83 94 L Room Air 3 07/04/24 12:00 07/04/24 12:00 07/04/24 12:00 07/04/24 12:07/04/24 12:00 07/04/24 12:07/02/24 04:00 Narrative Exam General Appearance: Not in acute, obese. HEENT: NC/AT, no scleral icterus, no conjunctival pallor, MMM Lungs: Clear to auscultation bilaterally, no rales. CVS: RRR, S1/S2 heard, no murmurs or rubs appreciated ABD: Soft, non-tender, non-distended, BS + in all 4 quadrants EXT: Bilateral lower extremity 2+ pitting edema with bilateral stasis dermatitis. Deroofed blister on medial right thigh, extremity bandaged with some drainage of serous fluid noted. SKIN: No jaundice, multiple tattoos on upper extremities and chest Neuro: AOx4. No gross neurological deficits. Motor and sensory grossly intact in B/L UL and LL. Psych: Appropriate mood and affect Discharge Plan Plan Patient Disposition: Xfer Other Disposition Comment: stable Patient condition on transfer: Stable Care Plan Goals: Patient will need to receive IV Rocephin 2g daily via PICC line and oral Doxycycline 100mg twice daily until day 08/08/24 Please continue all other home medications as prescribed. Please see your PCP within 1-2 weeks, and have a referral to see an ID and Orthopedist outpatient. Prescriptions/Referrals Prescriptions/Med Rec: New doxycycline hyclate 100 mg Tablet 100 mg PO BID 36 Days Qty: 72 0RF ceftriaxone 2 gram recon soln 2 g IV QDAY methadone 40 mg tablet,soluble 100 mg PO QDAY MDD 100mg 30 Days Qty: 75 0RF Continued losartan 50 mg tablet 50 mg PO QDAY Qty: 30 2RF gabapentin 300 mg capsule 300 mg PO BID omeprazole 20 mg capsule,delayed release(DR/EC) 20 mg PO QDAY Qty: 30 2RF celecoxib 200 mg capsule 1 cap PO BID Patient Comments: TAKE ONE CAPSULE BY MOUTH TWICE DAILY FOR ARTHRITIS tamsulosin 0.4 mg capsule 1 cap PO QDAY albuterol sulfate 90 mcg/actuation HFA aerosol inhaler 1 puff INHALATION QDAY PRN (Reason: Shortness Of Breath Or Wheezing) ascorbic acid (vitamin C) [C-500] 500 mg tablet 500 mg PO QDAY furosemide 40 mg tablet 40 mg PO BID Rx Instructions: Take one tab by mouth two times a day for edema/fluid retention hold if SBP <100, DBP <60 Discontinued clindamycin HCl 300 mg capsule 300 mg PO BID Rx Instructions: for 7 days 06/26/24-07/03/24 oxycodone-acetaminophen 5-325 mg tablet 1 tab PO Q6H PRN (Reason: pain) Referrals: Michael Hayes MD [Primary Care Provider] - Patient/Caregiver Discharge Instructions Meds to Beds: No Discharge Activity: activity as tolerated Education Materials: Wound Infection Tx, Discharge Instructions for Cellulitis Print Language: Czech Stand Alone Forms: [facility] Award Info., Patient Portal Info Letter Quality Discharge Quality Measures VTE prophylaxis MD Attestestation MD Attestation I have examined the patient, reviewed labs and imaging findings, discussed the case with the resident(s), and reviewed entered orders. I agree with the plan of care as outlined in this note. Time Spent: [address] Aleksandra MD
--- NOTE | 2024-07-04 16:22 | PC.SS ---
Follow up note: Patient has d/c orders today. Patient will return to [facility]. Patient has new picc line. Patient will need 6 weeks of i.v. antibiotics. Patria @ [facility] is aware. [employer] was contacted for transportation assistance. 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 Staff was updated of time. Facility aware of time as well.
[2024-07-04] MEDS: ACETAMINOPHEN 325 MG TABLET 650 MG PO (21:09)
--- NOTE | 2024-07-04 21:55 | PC.NURSE ---
called [facility] tel#[phone] and gave report to Araseli.
--- NOTE | 2024-07-04 21:58 | PC.NURSE ---
called Chad (brother) cp#[phone]- no answer.
== END 2024-07-04 22:14 | disposition other institution (70) | DRG 871 ==
LOC: SERX 22:16 → SERHOLD 23:30 → S3SX 06-28 00:24
PROVIDERS: Emergency Medicine; Internal Medicine Infectious Disease; Radiology Diagnostic Radiology; Student in an Organized Health Care Education/Training Program; Admitting Provider Internal Medicine; Emergency Provider Emergency Medicine; PCP Family Medicine; Visit Provider Student in an Organized Health Care Education/Training Program
DX: A40.0 Sepsis due to streptococcus, group A (principal); J96.01 Acute respiratory failure with hypoxia; N17.9 Acute kidney failure, unspecified; I50.32 Chronic diastolic (congestive) heart failure; L03.115 Cellulitis of right lower limb; E87.20 Acidosis, unspecified; M86.8X6 Other osteomyelitis, lower leg; M00.9 Pyogenic arthritis, unspecified; L97.219 Non-pressure chronic ulcer of right calf with unspecified severity; I11.0 Hypertensive heart disease with heart failure; R65.20 Severe sepsis without septic shock; F17.200 Nicotine dependence, unspecified, uncomplicated; K74.60 Unspecified cirrhosis of liver; B19.20 Unspecified viral hepatitis C without hepatic coma; F41.9 Anxiety disorder, unspecified; I73.9 Peripheral vascular disease, unspecified; N40.0 Benign prostatic hyperplasia without lower urinary tract symptoms; I87.2 Venous insufficiency (chronic) (peripheral); K21.9 Gastro-esophageal reflux disease without esophagitis; M17.0 Bilateral primary osteoarthritis of knee; Z99.3 Dependence on wheelchair; Z88.8 Allergy status to other drugs, medicaments and biological substances; Z79.899 Other long term (current) drug therapy; Z96.651 Presence of right artificial knee joint
CPT/HCPCS: 36415; 71045; 73590; 73700; 80048; 80053; 80061; 81001; 82436; 82570; 83605; 83615; 83690; 83735; 83880; 84100; 84133; 84145; 84300; 84443; 84484; 85025; 85610; 85652; 85730; 86140; 86803; 87040; 87070; 87075; 87077; 87081; 87086; 87186; 87205; 87522; 87811; 93005; 93970; 94640; 94664; 96361; 96365; 96366; 96367; 96375; 99285; A9270; C1894; J0692; J0696; J1642; J1643; J1885; J2270; J2405; J2470; J2543; J3370; J3490; J7030; J7040; J7050

== ENCOUNTER → 2024-07-12 | Outpatient (CLI) | payer MEDICARE, MEDICAID, SELFPAY | END | disposition home or self-care (01) | LOC: SWHD 10:04 | PROVIDERS: PCP Family Medicine; Referring Provider Family Medicine; Visit Provider Student in an Organized Health Care Education/Training Program | DX: L97.812 Non-pressure chronic ulcer of other part of right lower leg with fat layer exposed (principal); S91.104A Unspecified open wound of right lesser toe(s) without damage to nail, initial encounter; X58.XXXA Exposure to other specified factors, initial encounter; F17.200 Nicotine dependence, unspecified, uncomplicated; M19.91 Primary osteoarthritis, unspecified site; K74.60 Unspecified cirrhosis of liver; K21.9 Gastro-esophageal reflux disease without esophagitis; E66.9 Obesity, unspecified | CPT/HCPCS: 11042; 11045 ×8; A9270 ==

== ENCOUNTER → 2024-07-19 | Outpatient (CLI) | payer MEDICARE, MEDICAID, SELFPAY | END | disposition home or self-care (01) | LOC: SWHD 10:28 | PROVIDERS: PCP Family Medicine; Referring Provider Family Medicine; Visit Provider Student in an Organized Health Care Education/Training Program | DX: L97.812 Non-pressure chronic ulcer of other part of right lower leg with fat layer exposed (principal); S91.104A Unspecified open wound of right lesser toe(s) without damage to nail, initial encounter; X58.XXXA Exposure to other specified factors, initial encounter; F17.200 Nicotine dependence, unspecified, uncomplicated; M19.91 Primary osteoarthritis, unspecified site; K74.60 Unspecified cirrhosis of liver; K21.9 Gastro-esophageal reflux disease without esophagitis; E66.9 Obesity, unspecified | CPT/HCPCS: 11042; 11045 ×6; A9270 ==

== ENCOUNTER → 2024-07-26 | Outpatient (CLI) | payer MEDICARE, MEDICAID, SELFPAY | END | disposition home or self-care (01) | LOC: SWHD 10:34 | PROVIDERS: PCP Family Medicine; Referring Provider Family Medicine; Visit Provider Student in an Organized Health Care Education/Training Program | DX: L97.812 Non-pressure chronic ulcer of other part of right lower leg with fat layer exposed (principal); S91.104A Unspecified open wound of right lesser toe(s) without damage to nail, initial encounter; X58.XXXA Exposure to other specified factors, initial encounter; F17.200 Nicotine dependence, unspecified, uncomplicated; M19.91 Primary osteoarthritis, unspecified site; K74.60 Unspecified cirrhosis of liver; K21.9 Gastro-esophageal reflux disease without esophagitis; E66.9 Obesity, unspecified | CPT/HCPCS: 11042; 11045 ×6; 97597; 17250; A9270 ==

== ENCOUNTER → 2024-08-02 | Outpatient (CLI) | payer MEDICARE, MEDICAID, SELFPAY | END | disposition home or self-care (01) | LOC: SWHD 10:51 | PROVIDERS: PCP Family Medicine; Referring Provider Family Medicine; Visit Provider Surgery | DX: L97.812 Non-pressure chronic ulcer of other part of right lower leg with fat layer exposed (principal); S91.104A Unspecified open wound of right lesser toe(s) without damage to nail, initial encounter; X58.XXXA Exposure to other specified factors, initial encounter; F17.200 Nicotine dependence, unspecified, uncomplicated; M19.91 Primary osteoarthritis, unspecified site; K74.60 Unspecified cirrhosis of liver; K21.9 Gastro-esophageal reflux disease without esophagitis; E66.9 Obesity, unspecified | CPT/HCPCS: 29581; A9270 ==

== ENCOUNTER → 2024-08-09 | Outpatient (CLI) | payer MEDICARE, MEDICAID, SELFPAY | END | disposition home or self-care (01) | LOC: SWHD 08:53 | PROVIDERS: PCP Family Medicine; Referring Provider Family Medicine; Visit Provider Student in an Organized Health Care Education/Training Program | DX: L97.812 Non-pressure chronic ulcer of other part of right lower leg with fat layer exposed (principal); S91.104A Unspecified open wound of right lesser toe(s) without damage to nail, initial encounter; X58.XXXA Exposure to other specified factors, initial encounter; F17.200 Nicotine dependence, unspecified, uncomplicated; M19.91 Primary osteoarthritis, unspecified site; K74.60 Unspecified cirrhosis of liver; K21.9 Gastro-esophageal reflux disease without esophagitis; E66.9 Obesity, unspecified | CPT/HCPCS: 11042; 11045 ×6; A9270 ==

== ENCOUNTER → 2024-08-16 | Outpatient (CLI) | payer MEDICARE, MEDICAID, SELFPAY | END | disposition home or self-care (01) | LOC: SWHD 09:09 | PROVIDERS: PCP Family Medicine; Referring Provider Family Medicine; Visit Provider Surgery | DX: L97.812 Non-pressure chronic ulcer of other part of right lower leg with fat layer exposed (principal); S91.104A Unspecified open wound of right lesser toe(s) without damage to nail, initial encounter; X58.XXXA Exposure to other specified factors, initial encounter; F17.200 Nicotine dependence, unspecified, uncomplicated; M19.91 Primary osteoarthritis, unspecified site; K74.60 Unspecified cirrhosis of liver; K21.9 Gastro-esophageal reflux disease without esophagitis; E66.9 Obesity, unspecified | CPT/HCPCS: 29581; A9270 ==

== ENCOUNTER → 2024-08-23 | Outpatient (CLI) | payer MEDICARE, MEDICAID, SELFPAY | END | disposition home or self-care (01) | LOC: SWHD 09:22 | PROVIDERS: PCP Family Medicine; Referring Provider Family Medicine; Visit Provider Student in an Organized Health Care Education/Training Program | DX: L97.812 Non-pressure chronic ulcer of other part of right lower leg with fat layer exposed (principal); S91.104A Unspecified open wound of right lesser toe(s) without damage to nail, initial encounter; X58.XXXA Exposure to other specified factors, initial encounter; F17.200 Nicotine dependence, unspecified, uncomplicated; M19.91 Primary osteoarthritis, unspecified site; K74.60 Unspecified cirrhosis of liver; K21.9 Gastro-esophageal reflux disease without esophagitis; E66.9 Obesity, unspecified | CPT/HCPCS: 11044; 11042; 11045 ×7; 17250; A9270 ==

== ENCOUNTER → 2024-08-30 | Outpatient (CLI) | payer MEDICARE, MEDICAID, SELFPAY | END | disposition home or self-care (01) | LOC: SWHD 09:41 | PROVIDERS: PCP Family Medicine; Referring Provider Family Medicine; Visit Provider Student in an Organized Health Care Education/Training Program | DX: L97.811 Non-pressure chronic ulcer of other part of right lower leg limited to breakdown of skin (principal); S91.104A Unspecified open wound of right lesser toe(s) without damage to nail, initial encounter; X58.XXXA Exposure to other specified factors, initial encounter; F17.200 Nicotine dependence, unspecified, uncomplicated; M19.91 Primary osteoarthritis, unspecified site; K74.60 Unspecified cirrhosis of liver; K21.9 Gastro-esophageal reflux disease without esophagitis; E66.9 Obesity, unspecified | CPT/HCPCS: 97597; 97598 ×5; 17250; 15271; A9270 ==

== ENCOUNTER → 2024-09-06 | Outpatient (CLI) | payer MEDICARE, MEDICAID, SELFPAY | END | disposition home or self-care (01) | LOC: SWHD 09:54 | PROVIDERS: PCP Family Medicine; Referring Provider Family Medicine; Visit Provider Student in an Organized Health Care Education/Training Program | DX: L97.812 Non-pressure chronic ulcer of other part of right lower leg with fat layer exposed (principal); I10 Essential (primary) hypertension; I50.9 Heart failure, unspecified; K21.9 Gastro-esophageal reflux disease without esophagitis; M19.91 Primary osteoarthritis, unspecified site; K74.60 Unspecified cirrhosis of liver; F11.90 Opioid use, unspecified, uncomplicated; G62.9 Polyneuropathy, unspecified; B19.20 Unspecified viral hepatitis C without hepatic coma; N40.0 Benign prostatic hyperplasia without lower urinary tract symptoms | CPT/HCPCS: 97597; 11042; 11045 ×5; A9270 ==

== ENCOUNTER → 2024-09-13 | Outpatient (CLI) | payer MEDICARE, MEDICAID, SELFPAY | END | disposition home or self-care (01) | LOC: SWHD 10:39 | PROVIDERS: PCP Family Medicine; Referring Provider Family Medicine; Visit Provider Student in an Organized Health Care Education/Training Program | DX: L97.812 Non-pressure chronic ulcer of other part of right lower leg with fat layer exposed (principal); I50.9 Heart failure, unspecified; K21.9 Gastro-esophageal reflux disease without esophagitis; M19.91 Primary osteoarthritis, unspecified site; K74.60 Unspecified cirrhosis of liver; F11.90 Opioid use, unspecified, uncomplicated; G92.9 Unspecified toxic encephalopathy; B19.20 Unspecified viral hepatitis C without hepatic coma; N40.0 Benign prostatic hyperplasia without lower urinary tract symptoms | CPT/HCPCS: 11042; 11045 ×6; A9270 ==

== ENCOUNTER → 2024-09-20 | Outpatient (CLI) | payer MEDICARE, MEDICAID, SELFPAY | END | disposition home or self-care (01) | LOC: SWHD 08:03 | PROVIDERS: PCP Family Medicine; Referring Provider Family Medicine; Visit Provider Student in an Organized Health Care Education/Training Program | DX: L97.812 Non-pressure chronic ulcer of other part of right lower leg with fat layer exposed (principal); I50.9 Heart failure, unspecified; K21.9 Gastro-esophageal reflux disease without esophagitis; M19.91 Primary osteoarthritis, unspecified site; K74.60 Unspecified cirrhosis of liver; F11.90 Opioid use, unspecified, uncomplicated; G92.9 Unspecified toxic encephalopathy; B19.20 Unspecified viral hepatitis C without hepatic coma; N40.0 Benign prostatic hyperplasia without lower urinary tract symptoms | CPT/HCPCS: 11042; 11045 ×4; 97597; A9270 ==

== ENCOUNTER → 2024-09-27 | Outpatient (CLI) | payer MEDICARE, MEDICAID, SELFPAY | END | disposition home or self-care (01) | LOC: SWHD 09:06 | PROVIDERS: PCP Family Medicine; Referring Provider Family Medicine; Visit Provider Student in an Organized Health Care Education/Training Program | DX: L97.812 Non-pressure chronic ulcer of other part of right lower leg with fat layer exposed (principal); I50.9 Heart failure, unspecified; K21.9 Gastro-esophageal reflux disease without esophagitis; M19.91 Primary osteoarthritis, unspecified site; K74.60 Unspecified cirrhosis of liver; F11.90 Opioid use, unspecified, uncomplicated; B19.20 Unspecified viral hepatitis C without hepatic coma; N40.0 Benign prostatic hyperplasia without lower urinary tract symptoms | CPT/HCPCS: 11042; 11045 ×5; A9270 ==

== ENCOUNTER → 2024-10-04 | Outpatient (CLI) | payer MEDICARE, MEDICAID, SELFPAY | END | disposition home or self-care (01) | LOC: SWHD 08:56 | PROVIDERS: PCP Family Medicine; Referring Provider Family Medicine; Visit Provider Student in an Organized Health Care Education/Training Program | DX: L97.812 Non-pressure chronic ulcer of other part of right lower leg with fat layer exposed (principal); L97.822 Non-pressure chronic ulcer of other part of left lower leg with fat layer exposed; I50.9 Heart failure, unspecified; K21.9 Gastro-esophageal reflux disease without esophagitis; M19.91 Primary osteoarthritis, unspecified site; K74.60 Unspecified cirrhosis of liver; F11.90 Opioid use, unspecified, uncomplicated; B19.20 Unspecified viral hepatitis C without hepatic coma; N40.0 Benign prostatic hyperplasia without lower urinary tract symptoms | CPT/HCPCS: 11042; 11045 ×5; A9270 ==

== ENCOUNTER → 2024-10-11 | Outpatient (CLI) | payer MEDICARE, MEDICAID, SELFPAY | END | disposition home or self-care (01) | LOC: SWHD 08:56 | PROVIDERS: PCP Family Medicine; Referring Provider Family Medicine; Visit Provider Student in an Organized Health Care Education/Training Program | DX: L97.812 Non-pressure chronic ulcer of other part of right lower leg with fat layer exposed (principal); L97.822 Non-pressure chronic ulcer of other part of left lower leg with fat layer exposed; I50.9 Heart failure, unspecified; K21.9 Gastro-esophageal reflux disease without esophagitis; M19.91 Primary osteoarthritis, unspecified site; K74.60 Unspecified cirrhosis of liver; F11.90 Opioid use, unspecified, uncomplicated; B19.20 Unspecified viral hepatitis C without hepatic coma; N40.0 Benign prostatic hyperplasia without lower urinary tract symptoms | CPT/HCPCS: 11042; 11045 ×5; A9270 ==

== ENCOUNTER → 2024-10-18 | Outpatient (CLI) | payer MEDICARE, MEDICAID, SELFPAY | END | disposition home or self-care (01) | LOC: SWHD 08:51 | PROVIDERS: PCP Family Medicine; Referring Provider Family Medicine; Visit Provider Student in an Organized Health Care Education/Training Program | DX: L97.812 Non-pressure chronic ulcer of other part of right lower leg with fat layer exposed (principal); L97.822 Non-pressure chronic ulcer of other part of left lower leg with fat layer exposed; L97.525 Non-pressure chronic ulcer of other part of left foot with muscle involvement without evidence of necrosis; I50.9 Heart failure, unspecified; K21.9 Gastro-esophageal reflux disease without esophagitis; M19.91 Primary osteoarthritis, unspecified site; K74.60 Unspecified cirrhosis of liver; F11.90 Opioid use, unspecified, uncomplicated; B19.20 Unspecified viral hepatitis C without hepatic coma; N40.0 Benign prostatic hyperplasia without lower urinary tract symptoms | CPT/HCPCS: 29581; 11042; A9270 ==

== ENCOUNTER → 2024-10-25 | Outpatient (CLI) | payer MEDICARE, MEDICAID, SELFPAY | END | disposition home or self-care (01) | LOC: SWHD 15:02 | PROVIDERS: PCP Family Medicine; Referring Provider Family Medicine; Visit Provider Student in an Organized Health Care Education/Training Program | DX: L97.812 Non-pressure chronic ulcer of other part of right lower leg with fat layer exposed (principal); L97.822 Non-pressure chronic ulcer of other part of left lower leg with fat layer exposed; I50.9 Heart failure, unspecified; K21.9 Gastro-esophageal reflux disease without esophagitis; M19.91 Primary osteoarthritis, unspecified site; K74.60 Unspecified cirrhosis of liver; F11.90 Opioid use, unspecified, uncomplicated; B19.20 Unspecified viral hepatitis C without hepatic coma; N40.0 Benign prostatic hyperplasia without lower urinary tract symptoms | CPT/HCPCS: 11042; 11045 ×3; 17250; A9270 ==

== ENCOUNTER → 2024-11-01 | Outpatient (CLI) | payer MEDICARE, MEDICAID, SELFPAY | END | disposition home or self-care (01) | LOC: SWHD 14:40 | PROVIDERS: PCP Family Medicine; Referring Provider Family Medicine; Visit Provider Student in an Organized Health Care Education/Training Program | DX: L97.812 Non-pressure chronic ulcer of other part of right lower leg with fat layer exposed (principal); L97.822 Non-pressure chronic ulcer of other part of left lower leg with fat layer exposed; I50.9 Heart failure, unspecified; K21.9 Gastro-esophageal reflux disease without esophagitis; M19.91 Primary osteoarthritis, unspecified site; K74.60 Unspecified cirrhosis of liver; F11.90 Opioid use, unspecified, uncomplicated; B19.20 Unspecified viral hepatitis C without hepatic coma; N40.0 Benign prostatic hyperplasia without lower urinary tract symptoms | CPT/HCPCS: 17250; A9270 ==

== ENCOUNTER → 2024-11-08 | Outpatient (CLI) | payer MEDICARE, MEDICAID, SELFPAY | END | disposition home or self-care (01) | LOC: SWHD 09:38 | PROVIDERS: PCP Family Medicine; Referring Provider Family Medicine; Visit Provider Student in an Organized Health Care Education/Training Program | DX: L97.812 Non-pressure chronic ulcer of other part of right lower leg with fat layer exposed (principal); L97.822 Non-pressure chronic ulcer of other part of left lower leg with fat layer exposed; I50.9 Heart failure, unspecified; K21.9 Gastro-esophageal reflux disease without esophagitis; M19.91 Primary osteoarthritis, unspecified site; K74.60 Unspecified cirrhosis of liver; F11.90 Opioid use, unspecified, uncomplicated; B19.20 Unspecified viral hepatitis C without hepatic coma; N40.0 Benign prostatic hyperplasia without lower urinary tract symptoms | CPT/HCPCS: 17250; A9270 ==

== ENCOUNTER → 2024-11-15 | Outpatient (CLI) | payer MEDICARE, MEDICAID, SELFPAY | END | disposition home or self-care (01) | LOC: SWHD 09:58 | PROVIDERS: PCP Family Medicine; Referring Provider Family Medicine; Visit Provider Student in an Organized Health Care Education/Training Program | DX: L97.812 Non-pressure chronic ulcer of other part of right lower leg with fat layer exposed (principal); L97.822 Non-pressure chronic ulcer of other part of left lower leg with fat layer exposed; I50.9 Heart failure, unspecified; K21.9 Gastro-esophageal reflux disease without esophagitis; M19.91 Primary osteoarthritis, unspecified site; K74.60 Unspecified cirrhosis of liver; F11.90 Opioid use, unspecified, uncomplicated; B19.20 Unspecified viral hepatitis C without hepatic coma; N40.0 Benign prostatic hyperplasia without lower urinary tract symptoms | CPT/HCPCS: 11042; 11045 ×3; A9270 ==

== ENCOUNTER → 2024-11-16 | Outpatient (CLI) | payer MEDICARE, MEDICAID, SELFPAY ==
--- NOTE | 2024-11-16 11:30 | XR_ITS ---
Examination: CTA abdominal aorta iliofemoral runoff. 2-D sagittal coronal reconstructions. 3-D reconstructions, vascular Exam date and time: November 16, 2024 1142 hours INDICATIONS: Bilateral nonhealing wounds and swelling in the legs 1.5 years Technique: Multiple CTA images of the abdominal aorta iliofemoral runoff arterial vessels, 2.0 mm slice thickness, post intravenous administration 130 cc [id number] 2-D sagittal coronal reconstructions. 3-D reconstructions, vascular 3-D postprocessing, including vascular maximum intensity projection images, 3-D volume rendering Low dose protocols were performed. One or more of the following dose reduction techniques were used; automated exposure control, adjustment of the mA and/or KV according to patient size, use of iterative reconstruction technique. Findings: Liver is irregular in contour Cholelithiasis No splenic pancreatic or adrenal mass lesion Upper pole 4.5 cm right renal cyst No bowel obstruction Normal appendix Urinary bladder intact AP prostate dimension 3.9 cm Abdominal aortic calcification no aneurysmal dilatation No significant stenoses celiac superior mesenteric axes or renal artery origins Common iliac and external iliac common femoral arteries do not demonstrate significant stenoses Right superficial femoral artery demonstrates no significant stenosis Right popliteal artery is intact Trifurcation arteries fill to the ankle Left superficial femoral artery left popliteal artery demonstrates no critical stenoses Left trifurcation arteries fill to the ankle IMPRESSION: Primary hepatocellular disease 4.5 cm upper pole right renal cyst No significant obstructive arterial disease.
== END | disposition home or self-care (01) ==
PROVIDERS: Referring Provider Surgery Vascular Surgery; Visit Provider Surgery Vascular Surgery
DX: K76.9 Liver disease, unspecified (principal); N28.1 Cyst of kidney, acquired
CPT/HCPCS: 75635; A4649; Q9967

== ENCOUNTER → 2024-11-22 | Outpatient (CLI) | payer MEDICARE, MEDICAID, SELFPAY | END | disposition home or self-care (01) | LOC: SWHD 08:58 | PROVIDERS: PCP Family Medicine; Referring Provider Family Medicine; Visit Provider Student in an Organized Health Care Education/Training Program | DX: L97.812 Non-pressure chronic ulcer of other part of right lower leg with fat layer exposed (principal); L97.822 Non-pressure chronic ulcer of other part of left lower leg with fat layer exposed; I50.9 Heart failure, unspecified; K21.9 Gastro-esophageal reflux disease without esophagitis; M19.91 Primary osteoarthritis, unspecified site; K74.60 Unspecified cirrhosis of liver; F11.90 Opioid use, unspecified, uncomplicated; B19.20 Unspecified viral hepatitis C without hepatic coma; N40.0 Benign prostatic hyperplasia without lower urinary tract symptoms | CPT/HCPCS: 17250; A9270 ==

== ENCOUNTER → 2024-11-29 | Outpatient (CLI) | payer MEDICARE, MEDICAID, SELFPAY | END | disposition home or self-care (01) | LOC: SWHD 09:07 | PROVIDERS: PCP Family Medicine; Referring Provider Family Medicine; Visit Provider Student in an Organized Health Care Education/Training Program | DX: L97.812 Non-pressure chronic ulcer of other part of right lower leg with fat layer exposed (principal); L97.822 Non-pressure chronic ulcer of other part of left lower leg with fat layer exposed; I50.9 Heart failure, unspecified; K21.9 Gastro-esophageal reflux disease without esophagitis; M19.91 Primary osteoarthritis, unspecified site; K74.60 Unspecified cirrhosis of liver; F11.90 Opioid use, unspecified, uncomplicated; B19.20 Unspecified viral hepatitis C without hepatic coma; N40.0 Benign prostatic hyperplasia without lower urinary tract symptoms | CPT/HCPCS: 11042; 11045 ×2; 97597; 15271; 76700; Q4186; A9270 ==

== ENCOUNTER → 2024-12-06 | Outpatient (CLI) | payer MEDICARE, MEDICAID, SELFPAY | END | disposition home or self-care (01) | LOC: SWHD 08:59 | PROVIDERS: PCP Family Medicine; Referring Provider Family Medicine; Visit Provider Student in an Organized Health Care Education/Training Program | DX: L97.812 Non-pressure chronic ulcer of other part of right lower leg with fat layer exposed (principal); L97.822 Non-pressure chronic ulcer of other part of left lower leg with fat layer exposed; I50.9 Heart failure, unspecified; K21.9 Gastro-esophageal reflux disease without esophagitis; M19.91 Primary osteoarthritis, unspecified site; K74.60 Unspecified cirrhosis of liver; F11.90 Opioid use, unspecified, uncomplicated; B19.20 Unspecified viral hepatitis C without hepatic coma; N40.0 Benign prostatic hyperplasia without lower urinary tract symptoms | CPT/HCPCS: 97597; 97598 ×2; A9270 ==

== ENCOUNTER → 2024-12-20 | Outpatient (CLI) | payer MEDICARE, MEDICAID, SELFPAY | END | disposition home or self-care (01) | LOC: SWHD 08:28 | PROVIDERS: PCP Family Medicine; Referring Provider Family Medicine; Visit Provider Student in an Organized Health Care Education/Training Program | DX: L97.812 Non-pressure chronic ulcer of other part of right lower leg with fat layer exposed (principal); L97.522 Non-pressure chronic ulcer of other part of left foot with fat layer exposed; I50.9 Heart failure, unspecified; K21.9 Gastro-esophageal reflux disease without esophagitis; M19.91 Primary osteoarthritis, unspecified site; K74.60 Unspecified cirrhosis of liver; F11.90 Opioid use, unspecified, uncomplicated; B19.20 Unspecified viral hepatitis C without hepatic coma; N40.0 Benign prostatic hyperplasia without lower urinary tract symptoms | CPT/HCPCS: 97597; 15271; Q4186; A9270 ==

== ENCOUNTER → 2024-12-27 | Outpatient (CLI) | payer MEDICARE, MEDICAID, SELFPAY | END | disposition home or self-care (01) | LOC: SWHD 09:52 | PROVIDERS: PCP Family Medicine; Referring Provider Family Medicine; Visit Provider Surgery | DX: L97.812 Non-pressure chronic ulcer of other part of right lower leg with fat layer exposed (principal); L97.822 Non-pressure chronic ulcer of other part of left lower leg with fat layer exposed; L97.511 Non-pressure chronic ulcer of other part of right foot limited to breakdown of skin; I50.9 Heart failure, unspecified; K21.9 Gastro-esophageal reflux disease without esophagitis; M19.91 Primary osteoarthritis, unspecified site; K74.60 Unspecified cirrhosis of liver; F11.90 Opioid use, unspecified, uncomplicated; B19.20 Unspecified viral hepatitis C without hepatic coma; N40.0 Benign prostatic hyperplasia without lower urinary tract symptoms | CPT/HCPCS: 29581; A9270 ==

== ENCOUNTER → 2025-01-03 | Outpatient (CLI) | payer MEDICARE, MEDICAID, SELFPAY | END | disposition home or self-care (01) | PROVIDERS: Referring Provider Student in an Organized Health Care Education/Training Program; Visit Provider Student in an Organized Health Care Education/Training Program | DX: E11.622 Type 2 diabetes mellitus with other skin ulcer (principal) | CPT/HCPCS: 87070; 87075; 87077; 87186; 87205 ==

== ENCOUNTER → 2025-01-03 | Outpatient (CLI) | payer MEDICARE, MEDICAID, SELFPAY | END | disposition home or self-care (01) | PROVIDERS: PCP Family Medicine; Referring Provider Family Medicine; Visit Provider Student in an Organized Health Care Education/Training Program | DX: L97.812 Non-pressure chronic ulcer of other part of right lower leg with fat layer exposed (principal); L97.822 Non-pressure chronic ulcer of other part of left lower leg with fat layer exposed; L97.511 Non-pressure chronic ulcer of other part of right foot limited to breakdown of skin; I50.9 Heart failure, unspecified; K21.9 Gastro-esophageal reflux disease without esophagitis; M19.91 Primary osteoarthritis, unspecified site; K74.60 Unspecified cirrhosis of liver; F11.90 Opioid use, unspecified, uncomplicated; B19.20 Unspecified viral hepatitis C without hepatic coma; N40.0 Benign prostatic hyperplasia without lower urinary tract symptoms | CPT/HCPCS: 97597; 11042; 87070; 87075; 87077; 87186; 87205; A9270 ==

== ENCOUNTER → 2025-01-10 | Outpatient (CLI) | payer MEDICARE, MEDICAID, SELFPAY | END | disposition home or self-care (01) | LOC: SWHD 10:10 | PROVIDERS: PCP Family Medicine; Referring Provider Family Medicine; Visit Provider Student in an Organized Health Care Education/Training Program | DX: L97.812 Non-pressure chronic ulcer of other part of right lower leg with fat layer exposed (principal); L97.822 Non-pressure chronic ulcer of other part of left lower leg with fat layer exposed; L97.511 Non-pressure chronic ulcer of other part of right foot limited to breakdown of skin; I11.9 Hypertensive heart disease without heart failure; K21.9 Gastro-esophageal reflux disease without esophagitis; M19.91 Primary osteoarthritis, unspecified site; K74.60 Unspecified cirrhosis of liver; F11.90 Opioid use, unspecified, uncomplicated; B19.20 Unspecified viral hepatitis C without hepatic coma; N40.0 Benign prostatic hyperplasia without lower urinary tract symptoms | CPT/HCPCS: 29581; A9270 ==

== ENCOUNTER → 2025-01-17 | Outpatient (CLI) | payer MEDICARE, MEDICAID, SELFPAY | END | disposition home or self-care (01) | LOC: SWHD 10:38 | PROVIDERS: PCP Family Medicine; Referring Provider Family Medicine; Visit Provider Student in an Organized Health Care Education/Training Program | DX: L97.812 Non-pressure chronic ulcer of other part of right lower leg with fat layer exposed (principal); L97.522 Non-pressure chronic ulcer of other part of left foot with fat layer exposed; I11.9 Hypertensive heart disease without heart failure; K21.9 Gastro-esophageal reflux disease without esophagitis; M19.91 Primary osteoarthritis, unspecified site; F11.90 Opioid use, unspecified, uncomplicated; B19.20 Unspecified viral hepatitis C without hepatic coma; N40.0 Benign prostatic hyperplasia without lower urinary tract symptoms | CPT/HCPCS: 97597; A9270 ==

== ENCOUNTER → 2025-01-24 | Outpatient (CLI) | payer MEDICARE, MEDICAID, SELFPAY | END | disposition home or self-care (01) | LOC: SWHD 09:47 | PROVIDERS: PCP Family Medicine; Referring Provider Family Medicine; Visit Provider Student in an Organized Health Care Education/Training Program | DX: L97.822 Non-pressure chronic ulcer of other part of left lower leg with fat layer exposed (principal); L97.511 Non-pressure chronic ulcer of other part of right foot limited to breakdown of skin; I11.9 Hypertensive heart disease without heart failure; K21.9 Gastro-esophageal reflux disease without esophagitis; M19.91 Primary osteoarthritis, unspecified site; F11.90 Opioid use, unspecified, uncomplicated; B19.20 Unspecified viral hepatitis C without hepatic coma; N40.0 Benign prostatic hyperplasia without lower urinary tract symptoms | CPT/HCPCS: A9270 ==

== ENCOUNTER → 2025-02-07 | Outpatient (CLI) | payer MEDICARE, MEDICAID, SELFPAY | END | disposition home or self-care (01) | LOC: SWHD 09:59 | PROVIDERS: PCP Family Medicine; Referring Provider Family Medicine; Visit Provider Student in an Organized Health Care Education/Training Program | DX: L97.822 Non-pressure chronic ulcer of other part of left lower leg with fat layer exposed (principal); L97.511 Non-pressure chronic ulcer of other part of right foot limited to breakdown of skin; I11.9 Hypertensive heart disease without heart failure; K21.9 Gastro-esophageal reflux disease without esophagitis; M19.91 Primary osteoarthritis, unspecified site; F11.90 Opioid use, unspecified, uncomplicated; B19.20 Unspecified viral hepatitis C without hepatic coma; N40.0 Benign prostatic hyperplasia without lower urinary tract symptoms | CPT/HCPCS: 97597 ==